=== PATIENT | male | born 1975 | race American Indian/Alaskan Native ===

== ENCOUNTER 2017-10-11 12:49 | Emergency (ER) | payer MEDICAID, MEDICARE ==
[2017-10-11 13:15] VITALS: BP 115/76
[2017-10-11] MEDS ORDERED: ASPIRIN PO ONE (13:15)
[2017-10-11 13:50] LABS: Basophils # (Auto) 0.1 K/mm3 (0.0-0.1); Basophils % (Auto) 0.8 % (0.0-1.8); Eosinophils # (Auto) 0.1 K/mm3 (0.0-0.4); Hematocrit 46.5 % (35.5-45.6); Hemoglobin 15.6 gm/dl (11.8-15.2); Lymphocytes # (Auto) 2.5 K/mm3 (1.2-5.4); Lymphocytes % (Auto) 30.1 % (13.4-35.0); Mean Corpuscular HGB Conc 34 % (32-34); Mean Corpuscular Hemoglobin 31 pg (28-32); Mean Corpuscular Volume 92 fl (84-94); Monocytes # (Auto) 0.9 K/mm3 (0.0-0.8); Monocytes % (Auto) 11.5 % (0.0-7.3); Platelet Count 195 K/mm3 (140-440); Red Blood Count 5.05 M/mm3 (3.65-5.03); Red Cell Distribution Width 13.7 % (13.2-15.2)
[2017-10-11 14:00] LABS: BUN/Creatinine Ratio 11; Blood Urea Nitrogen 10 mg/dL (9-20); Calcium 9.3 mg/dL (8.4-10.2); Hemolysis Index 10
--- NOTE | 2017-10-11 14:21 | XRay Report ---
CHEST 2 VIEWS INDICATION: Chest pain. COMPARISON: 07/02/2015 FINDINGS: PA and lateral chest radiographs again demonstrate normal cardiomediastinal silhouette. Clear lungs. Slight mid to lower thoracic spine degenerative spurring may be developing. CONCLUSION: No acute disease. Thank you for the opportunity to participate in this patient's care.
--- NOTE | 2017-10-11 15:23 | Emergency Department Report ---
Chief Complaint: Chest Pain Stated Complaint: LEFT LEG PAIN Time Seen by Provider: 10/11/17 15:17 - HPI History of Present Illness: 42-year-old male presents to the emergency department with the complaint of pain to the left side of the chest and to the left leg. 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 He is not currently on any blood thinners. He is a tobacco smoker. No recent travel, immobility, recent surgery or any sick contacts at home. He has a primary care physician but cannot currently remember their name and has not seen them regarding his symptoms. - ROS Review of Systems: Positive for left chest/lung pain, left thigh pain Negative for fever, shortness of breath, nausea, vomiting, palpitations - Exam Vital Signs: Vital Signs 10/11/17 13:12 Temperature 98.6 F Pulse Rate 72 Respiratory 16 Rate Blood Pressure 115/76 O2 Sat by Pulse 99 Oximetry Physical Exam: Lung and heart sounds normal auscultation. The left thigh pain is not reproducible to palpation. There is no obvious edema or skin color change. MSE screening note: Focused history and physical exam performed. Due to findings the following was ordered: Patient's labs thus far unremarkable including a CBC, BMP, first troponin and a negative d-dimer. However with the patient's history of previous DVT with unexplained etiology, the patient will have a left lower extremity venous Doppler. He will have A second troponin. EKG does not show any signs of ST elevation PR, ischemia or dysrhythmia. ED Medical Decision Making - Lab Data Result diagrams: 10/11/17 13:17 10/11/17 13:17 ED Disposition for MSE Condition: Stable
[2017-10-11] MEDS ORDERED: TORADOL IM ONE (16:55)
--- NOTE | 2017-10-11 17:01 | Emergency Department Report ---
ED Chest Pain HPI - General Chief Complaint: Chest Pain Stated Complaint: LEFT LEG PAIN Time Seen by Provider: 10/11/17 15:17 Source: patient Mode of arrival: Ambulatory Limitations: No Limitations - History of Present Illness Initial Comments: This is a 42-year-old male nontoxic, well nourished in appearance, no acute signs of distress presents to the ED with c/o of left sided chest pain and left leg pain x2 days. Patient denies any radiation of pain. Patient describes pain as aching intermittently. Patient denies any upper respiratory symptoms. Patient denies any shortness of breath, hemoptysis, fever, chills, nausea, vomiting, headache, stiff neck, numbness, tingling, abdominal pain. Patient denies pleuritic chest pain. Patient denies any recent travels or long car rides. Patient denies any recent surgeries or any sick contacts. Patient denies any drug allergies. Past medical history includes anxiety and DVT. MD Complaint: chest pain -: days(s) (2) Pain Location: right chest Pain Radiation: none Severity: mild Severity scale (0 -10): 3 Quality: aching Consistency: intermittent Improves With: nothing Worsens With: nothing re: denies: nausea, vomting, diaphoresis, dyspnea, sense of impending doom Other Symptoms: denies: cough, fever, syncope, rash, acid taste in mouth, leg swelling, palpitations, burping Treatments Prior to Arrival: none Aspirin use within the Past 7 Days: (0) No - Related Data On Oral Contraceptives: No Previous Rx's Medication Instructions Recorded Last Taken Type Cyclobenzaprine [Flexeril] 10 mg PO BID PRN #10 tablet 10/11/17 Unknown Rx Ibuprofen [Motrin] 600 mg PO Q8H PRN #30 tablet 10/11/17 Unknown Rx Allergies Allergy/AdvReac Type Severity Reaction Status Date / Time No Known Allergies Allergy Verified 07/02/15 14:36 Heart Score - HEART Score History: Slightly suspicious EKG: Normal Age: < 45 Risk factors: No known risk factors Troponin: < normal limit HEART Score: 0 ED Review of Systems ROS: Stated complaint: LEFT LEG PAIN Other details as noted in HPI Constitutional: denies: chills, fever Eyes: denies: eye pain, eye discharge, vision change ENT: denies: ear pain, throat pain Respiratory: denies: cough, shortness of breath, wheezing Cardiovascular: chest pain. denies: palpitations Endocrine: no symptoms reported Gastrointestinal: denies: abdominal pain, nausea, diarrhea Genitourinary: denies: urgency, dysuria Musculoskeletal: denies: back pain, joint swelling, arthralgia Skin: denies: rash, lesions Neurological: denies: headache, weakness, paresthesias Psychiatric: denies: anxiety, depression Hematological/Lymphatic: denies: easy bleeding, easy bruising ED Past Medical Hx - Past Medical History Previous Medical History?: Yes Hx Psychiatric Treatment: Yes (anxiety) - Surgical History Past Surgical History?: No - Social History Smoking Status: Current Every Day Smoker Substance Use Type: None - Medications Home Medications: Home Medications Medication Instructions Recorded Confirmed Last Taken Type Cyclobenzaprine [Flexeril] 10 mg PO BID PRN #10 tablet 10/11/17 Unknown Rx Ibuprofen [Motrin] 600 mg PO Q8H PRN #30 tablet 10/11/17 Unknown Rx ED Physical Exam - General Limitations: No Limitations General appearance: alert, in no apparent distress - Head Head exam: Present: atraumatic, normocephalic - Eye Eye exam: Present: normal appearance Pupils: Present: normal accommodation - ENT ENT exam: Present: normal exam, mucous membranes moist - Neck Neck exam: Present: normal inspection, full ROM. Absent: tenderness, meningismus, lymphadenopathy - Respiratory Respiratory exam: Present: normal lung sounds bilaterally. Absent: respiratory distress, wheezes, rales, rhonchi, stridor, chest wall tenderness, accessory muscle use, decreased breath sounds, prolonged expiratory - Cardiovascular Cardiovascular Exam: Present: regular rate, normal rhythm, normal heart sounds. Absent: bradycardia, tachycardia, irregular rhythm, systolic murmur, diastolic murmur, rubs, gallop - GI/Abdominal GI/Abdominal exam: Present: soft, normal bowel sounds. Absent: distended, tenderness, guarding, rebound, rigid, diminished bowel sounds - Rectal Rectal exam: Present: deferred - Extremities Exam Extremities exam: Present: normal inspection, full ROM, normal capillary refill. Absent: tenderness, pedal edema, joint swelling, calf tenderness - Back Exam Back exam: Present: normal inspection, full ROM - Neurological Exam Neurological exam: Present: alert, oriented X3, normal gait - Psychiatric Psychiatric exam: Present: normal affect, normal mood - Skin Skin exam: Present: warm, dry, intact, normal color. Absent: rash ED Course Vital Signs 10/11/17 13:12 Temperature 98.6 F Pulse Rate 72 Respiratory 16 Rate Blood Pressure 115/76 O2 Sat by Pulse 99 Oximetry - Reevaluation(s) Reevaluation #1: 10/11/17 17:02 Patient is speaking in full sentences with no signs of distress noted. - Consultations Consultation #1: 10/11/17 17:02 Patient has been consulted with Dr. Klein about patient history, physical exam, and labs/Xray report and examined and screened patient and agrees to ED plan of care and discharge plan of care. MILLICENT score - Millicent Score Age > 65: (0) No Aspirin use within the Past 7 Days: (0) No 3 or more CAD Risk Factors: (0) No 2 or more Angina events in past 24 hrs: (0) No Known CAD with more than 50% Stenosis: (0) No Elevated Cardiac Markers: (0) No ST Deviation Greater than 0.5mm: (0) No MILLICENT Score: 0 ED Medical Decision Making - Lab Data Result diagrams: 10/11/17 13:17 10/11/17 13:17 - Medical Decision Making This is a 42-year-old male that presents with chest pain and left muscular leg pain. Patient is stable and was examined by me and Dr. Klein. MILLICENT and HEART score 0 pints. Wells criteria for DVT/SVT/PE 0 points. Negative d-dimmer. Doppler US with no acute changes. EKG normal sinus rhythm with no significant changes in ST. Chest xray dictated by the radiologist. PAtient is notified of the Xray report with no questions noted. Labs within normal limits. Negative troponin x2. Patient received Toradol 60 mg IM in the ED which she stated his symptoms are improving subsided. I will discharge patient with Flexeril and Motrin. Patient was instructed to Follow-up with a primary care/carton folder doctor in 3-5 days or if symptoms worsen and continue return to emergency room as soon as possible. At time of discharge, the patient does not seem toxic or ill in appearance. No acute signs of distress noted. Patient agrees to discharge treatment plan of care. No further questions noted by the patient. Critical care attestation.: If time is entered above; I have spent that time in minutes in the direct care of this critically ill patient, excluding procedure time. ED Disposition Clinical Impression: Chest pain Qualifiers: Chest pain type: unspecified Qualified Code(s): R07.9 - Chest pain, unspecified Muscle strain, lower leg Qualifiers: Encounter type: initial encounter Laterality: left Qualified Code(s): S86.912A - Strain of unspecified muscle(s) and tendon(s) at lower leg level, left leg, initial encounter Disposition: TO HOME OR SELFCARE Is pt being admited?: No Does the pt Need Aspirin: No Condition: Stable Instructions: Chest Pain (ED), Muscle Strain (ED), Cyclosporine (By mouth), Ibuprofen (By mouth) Additional Instructions: Follow-up with a primary care/carton folder doctor in 3-5 days or if symptoms worsen and continue return to emergency room as soon as possible. Prescriptions: Cyclobenzaprine [Flexeril] 10 mg PO BID PRN #10 tablet PRN Reason: Muscle Spasm Ibuprofen [Motrin] 600 mg PO Q8H PRN #30 tablet PRN Reason: Pain Referrals: PRIMARY CAREMD [Referring] - 3-5 Days ITZ KING MD [Staff Physician] - 3-5 Days YOVANY GALARZA MD [Staff Physician] - 3-5 Days [facility] [place]] - 3-5 Days [facility] [Outside] - 3-5 Days Forms: Work/School Release Form(ED)
--- NOTE | 2017-10-12 12:44 | Vascular Lab Report ---
Left Lower Extremity Venous Duplex Study: Reason for Exam: Pain and swelling of the left lower extremity. Comments on the Right: A limited duplex study was done of the proximal veins of the right lower extremity. All veins visualized are freely compressible without evidence of internal echogenicity. Flow is spontaneous and phasic throughout. No evidence of acute or chronic thrombus is seen in any of the vessels visualized. Comments on the Left: Partially occluding chronic thrombus is seen throughout the superficial femoral vein. The remaining veins visualized are freely compressible without evidence of internal echogenicity. Spontaneous and phasic flow is present proximally. Impression: Partially occluding chronic thrombus noted in the left superficial femoral vein. No evidence of acute deep venous thrombosis in the left lower extremity.
== END 2017-10-11 17:15 | disposition home or self-care (01) ==
LOC: ED 12:49
DX: S86.912A Strain of unspecified muscle(s) and tendon(s) at lower leg level, left leg, initial encounter (principal); R07.9 Chest pain, unspecified; F17.200 Nicotine dependence, unspecified, uncomplicated; X58.XXXA Exposure to other specified factors, initial encounter; Y93.89 Activity, other specified; Y92.89 Other specified places as the place of occurrence of the external cause; Y99.8 Other external cause status
CPT/HCPCS: 36415; 71046; 80048; 84484; 85025; 85379; 93005; 93010

== ENCOUNTER 2018-01-24 15:34 | Emergency (ER) | payer MEDICARE ==
[2018-01-24 15:55] VITALS: BP 92/59
--- NOTE | 2018-01-24 16:46 | Emergency Department Report ---
ED General Adult HPI - General Chief complaint: Dizziness Stated complaint: LIGHT HEADED Time Seen by Provider: 01/24/18 16:36 Source: patient Mode of arrival: Ambulatory Limitations: Physical Limitation - History of Present Illness -: Gradual Location: lower extremity Radiation: non-radiation Quality: aching Associated Symptoms: denies other symptoms. denies: confusion, chest pain, cough, diaphoresis, fever/chills, headaches, loss of appetite, malaise, nausea/ vomiting, rash, seizure, shortness of breath, syncope, weakness Treatments Prior to Arrival: none - Related Data Allergies Allergy/AdvReac Type Severity Reaction Status Date / Time No Known Allergies Allergy Verified 07/02/15 14:36 ED Review of Systems ROS: Stated complaint: LIGHT HEADED Other details as noted in HPI Comment: All other systems reviewed and negative Constitutional: denies: chills, fever Eyes: denies: eye pain ENT: denies: ear pain, throat pain Respiratory: denies: cough, orthopnea Cardiovascular: denies: chest pain, palpitations, dyspnea on exertion, orthopnea Endocrine: denies: excessive sweating, flushing, intolerance to cold, intolerance to heat Gastrointestinal: denies: abdominal pain, nausea, vomiting Genitourinary: denies: urgency, dysuria Musculoskeletal: other (LLE PAIN W HX DVT). denies: back pain Skin: denies: rash, lesions Neurological: denies: headache, weakness, numbness, paresthesias, confusion, abnormal gait, vertigo Psychiatric: anxiety, depression, auditory hallucinations. denies: visual hallucinations, homicidal thoughts, suicidal thoughts Hematological/Lymphatic: denies: easy bleeding, easy bruising, swollen glands ED Past Medical Hx - Past Medical History Hx Psychiatric Treatment: Yes (anxiety, SCHIZOPHRENIA) Additional medical history: DVT - Surgical History Past Surgical History?: No - Family History Family history: no significant - Social History Smoking Status: Current Every Day Smoker Substance Use Type: Marijuana ED Physical Exam - General Limitations: Physical Limitation General appearance: alert, anxious, other (TEARFUL) - Head Head exam: Present: normocephalic - Eye Eye exam: Present: PERRL, EOMI - ENT ENT exam: Present: mucous membranes moist - Neck Neck exam: Present: normal inspection - Respiratory Respiratory exam: Present: normal lung sounds bilaterally - Cardiovascular Cardiovascular Exam: Present: regular rate - GI/Abdominal GI/Abdominal exam: Present: soft, normal bowel sounds - Rectal Rectal exam: Present: deferred - Extremities Exam Extremities exam: Present: normal inspection, full ROM, normal capillary refill , other (PLUS 2 DP BILATERAL; NO EDEMA; NEG HOMANS). Absent: tenderness, pedal edema, joint swelling, calf tenderness - Back Exam Back exam: Present: normal inspection - Neurological Exam Neurological exam: Present: alert, oriented X3, CN II-XII intact, normal gait - Psychiatric Psychiatric exam: Present: depressed, anxious. Absent: homicidal ideation, suicidal ideation - Skin Skin exam: Present: warm, dry, intact, normal color. Absent: rash ED Course Vital Signs 01/24/18 15:49 Temperature 97.7 F Pulse Rate 94 H Respiratory 20 Rate Blood Pressure 92/59 O2 Sat by Pulse 96 Oximetry - Reevaluation(s) Reevaluation #1: 01/24/18 18:38 TO ER W PAIN OF LLE W HX OF DVT DURING EXAM PT TEARFUL POS [facility] PT ON [facility] GOT SHOT LAST WEEK SEES [facility] STATES HE DOES NOT WANT TO LIVE HE IS TIRED HOMELESS NO SI NO HI POS AUD HALLUC. WILL NOT SAY WHAT THE MENTAL HEALTH HAS SEEN PT CIG ETOH TCH LABS NORMAL 12 LEAD NAP US NEG FOR DVT DC HOME W [facility] FOLLOW UP ED Medical Decision Making - Lab Data Result diagrams: 01/24/18 16:36 01/24/18 16:36 - EKG Data When compared to previous EKG there are: no significant change Interpretation: no acute changes - Radiology Data Radiology results: report reviewed, image reviewed - Medical Decision Making MENTAL HEALTH ASSESSMENT SEE NOTE NEG DVT LABS NORMAL - Differential Diagnosis RO DVT; PSYCH CLEARANCE Critical care attestation.: If time is entered above; I have spent that time in minutes in the direct care of this critically ill patient, excluding procedure time. ED Disposition Clinical Impression: Homeless, Wellness examination, Leg pain Disposition: DC- TO HOME OR SELFCARE Is pt being admited?: No Does the pt Need Aspirin: No Condition: Stable Additional Instructions: LABS NORMAL TODAY NO BLOOD CLOT FOLLOW UP WITH [address] PER MENTAL HEALTH HYDRATE WELL Referrals: PRIMARY CARE, [Primary Care Provider] - 3-5 Days NITHIN HENDRICKS MD [Staff Physician] - 3-5 Days Time of Disposition: 18:34
[2018-01-24 16:51] LABS: Basophils % (Auto) 0.5 % (0.0-1.8); Eosinophils % (Auto) 0.6 % (0.0-4.3); Hemoglobin 14.2 gm/dl (11.8-15.2); Lymphocytes # (Auto) 2.1 K/mm3 (1.2-5.4); Lymphocytes % (Auto) 29.4 % (13.4-35.0); Mean Corpuscular HGB Conc 33 % (32-34); Mean Corpuscular Hemoglobin 31 pg (28-32); Mean Corpuscular Volume 93 fl (84-94); Monocytes # (Auto) 0.4 K/mm3 (0.0-0.8); Platelet Count 169 K/mm3 (140-440); Red Blood Count 4.62 M/mm3 (3.65-5.03)
[2018-01-24 17:00] LABS: INR 1.07 (0.87-1.13)
[2018-01-24 17:01] LABS: Partial Thromboplastin Time 25.9 Sec. (24.2-36.6)
[2018-01-24 17:16] LABS: BUN/Creatinine Ratio 8; Blood Urea Nitrogen 8 mg/dL (9-20); Hemolysis Index 7
[2018-01-24 18:23] LABS: Bilirubin,Urine NEG (Negative); Blood,Urine NEG (Negative); Color,Urine Yellow (Yellow); Mucus,Urine 1+ /HPF; Protein,Urine <15 mg/dL mg/dL (Negative)
[2018-01-24 18:25] LABS: Amphetamine Screen,Urine PRESUMPTIVE NEGATIVE; Benzodiazepines Screen,Urine PRESUMPTIVE NEGATIVE; Cocaine Screen,Urine PRESUMPTIVE NEGATIVE; Methadone Screen,Urine PRESUMPTIVE NEGATIVE; Opiate Screen,Urine PRESUMPTIVE NEGATIVE
[2018-01-24 18:43] LABS: Cannabinoid Screen,Urine PRESUMPTIVE POSITIVE
--- NOTE | 2018-01-26 14:28 | Vascular Lab Report ---
Left Lower Extremity Venous Duplex Study: Reason for Exam: Pain and swelling of the left lower extremity. Comments on the Right: A limited duplex study was done of the proximal veins of the right lower extremity. All veins visualized are freely compressible without evidence of internal echogenicity. Flow is spontaneous and phasic throughout. No evidence of acute or chronic thrombus is seen in any of the vessels visualized. Comments on the Left: Partially occluding chronic thrombus is seen in the common femoral vein, superficial femoral vein, and the popliteal vein. These findings are unchanged from a previous study dated October 11, 2017. The remaining veins visualized are freely compressible without evidence of internal echogenicity. Spontaneous and phasic flow is present proximally. Impression: Extensive partially occluding chronic thrombus seen in the left lower extremity. This is unchanged from the previous study dated October 11, 2017.
== END 2018-01-24 19:00 | disposition home or self-care (01) ==
LOC: ED 15:34
DX: R42 Dizziness and giddiness (principal); M79.605 Pain in left leg; M79.604 Pain in right leg; F17.200 Nicotine dependence, unspecified, uncomplicated; F12.90 Cannabis use, unspecified, uncomplicated; Z59.0 Homelessness
CPT/HCPCS: 36415; 80048; 80307; 81001; 85025; 85610; 85730; 93005; 93010; 93971; 99284; G0480; 80320

== ENCOUNTER 2018-08-06 14:16 | Emergency (ER) | payer MEDICARE ==
[2018-08-06 14:21] VITALS: BP 116/78
--- NOTE | 2018-08-06 14:26 | Emergency Department Report ---
Chief Complaint: Urogenital-Male Stated Complaint: STD CHECK Time Seen by Provider: 08/06/18 14:20 - HPI History of Present Illness: 42 y o male presents to Ed wanting to be tested for herpes states he was given oral sex a couple of days ago and is worried No symptoms - ROS Review of Systems: as noted in HPI denies all - Exam Vital Signs: Vital Signs 08/06/18 14:20 Temperature 98.5 F Pulse Rate 86 Respiratory 16 Rate Blood Pressure 116/78 O2 Sat by Pulse 98 Oximetry Physical Exam: Gen: aaox 3 no acute distress AbD: nontender MSE screening note: Focused history and physical exam performed. Due to findings the following was ordered: ED Medical Decision Making - Medical Decision Making [facility] clinic referral given and told to f/u there for std screening discussed with pt this is not a NME which he could be seen at [facility] He states understanding, all questions answered. vital signs stable ED Disposition for MSE Clinical Impression: Screening for STD (sexually transmitted disease) Disposition: DC-01 TO HOME OR SELFCARE Is pt being admited?: No Does the pt Need Aspirin: No Condition: Stable Instructions: Genital Herpes Simplex (ED) Referrals: [facility] [Outside] - 3-5 Days [facility] [Outside] - 3-5 Days Forms: Work/School Release Form(ED)
== END 2018-08-06 14:48 | disposition home or self-care (01) ==
LOC: ED 14:16
DX: Z11.3 Encounter for screening for infections with a predominantly sexual mode of transmission (principal)
CPT/HCPCS: 99281

== ENCOUNTER 2018-12-14 01:08 | Emergency (ER) | payer MEDICARE ==
[2018-12-14] MEDS ORDERED: ASPIRIN PO ONE (01:13)
[2018-12-14 01:40] LABS: Basophils # (Auto) 0.1 K/mm3 (0.0-0.1); Basophils % (Auto) 0.6 % (0.0-1.8); Eosinophils % (Auto) 0.3 % (0.0-4.3); Hematocrit 44.6 % (35.5-45.6); Hemoglobin 15.3 gm/dl (11.8-15.2); Lymphocytes # (Auto) 1.9 K/mm3 (1.2-5.4); Lymphocytes % (Auto) 20.4 % (13.4-35.0); Mean Corpuscular HGB Conc 34 % (32-34); Mean Corpuscular Volume 91 fl (84-94); Monocytes # (Auto) 0.5 K/mm3 (0.0-0.8); Monocytes % (Auto) 5.9 % (0.0-7.3); Platelet Count 204 K/mm3 (140-440); Red Blood Count 4.91 M/mm3 (3.65-5.03); Red Cell Distribution Width 13.6 % (13.2-15.2)
--- NOTE | 2018-12-14 01:47 | XRay Report ---
CHEST 1 VIEW 1:33 AM INDICATION / CLINICAL INFORMATION: Chest Pain. COMPARISON: 10/11/2017. FINDINGS: SUPPORT DEVICES: None. HEART / MEDIASTINUM: The heart size and pulmonary vasculature are normal. The aorta is normal in mariya morteza. LUNGS / PLEURA: No significant pulmonary or pleural abnormality. No pneumothorax. ADDITIONAL FINDINGS: No significant additional findings. IMPRESSION: No acute abnormality or significant change. Signer Name: Ralph Mosquera MD Signed: 12/14/2018 1:42 AM Workstation Name: [id number]
[2018-12-14 02:02] LABS: BUN/Creatinine Ratio 11; Blood Urea Nitrogen 10 mg/dL (9-20); Calcium 9.5 mg/dL (8.4-10.2); Hemolysis Index 18
[2018-12-14 03:56] VITALS: BP 142/89
--- NOTE | 2018-12-14 05:23 | Emergency Department Report ---
ED Psych HPI - General Chief Complaint: Psych Stated Complaint: MEDICAL CLEARANCE Time Seen by Provider: 12/14/18 02:05 Source: patient Mode of arrival: Ambulatory Limitations: No Limitations - History of Present Illness Initial Comments: presents to ER for Medical clearance for [facility] where he is going for alcohol detox. no n/v, c/o chest pain, for about one month, mid chest mostly after drinking alcohol. no sob, n/v, or diaphoresis. - Related Data Previous Rx's Medication Instructions Recorded Last Taken Type Amoxicillin/Potassium Clav 1 each PO BID #20 tablet 04/29/18 Unknown Rx [Augmentin 875-125 Tablet] Ibuprofen [Ibuprofen 800] 800 mg PO TID PRN #30 tablet 04/29/18 Unknown Rx Oxymetazoline 0.05% [Afrin] 2 spray NS BID 3 Days #1 bottle 04/29/18 Unknown Rx Allergies Allergy/AdvReac Type Severity Reaction Status Date / Time No Known Allergies Allergy Verified 08/06/18 14:17 ED Review of Systems ROS: Stated complaint: MEDICAL CLEARANCE Other details as noted in HPI Comment: All other systems reviewed and negative Cardiovascular: chest pain Gastrointestinal: denies: abdominal pain, nausea, vomiting Genitourinary: denies: urgency Skin: denies: rash Psychiatric: anxiety. denies: depression, auditory hallucinations, visual hallucinations, homicidal thoughts ED Past Medical Hx - Past Medical History Previous Medical History?: Yes Hx Psychiatric Treatment: Yes (anxiety, SCHIZOPHRENIA) Additional medical history: DVT left leg. Svt - Surgical History Past Surgical History?: No - Social History Smoking Status: Current Every Day Smoker Substance Use Type: Alcohol - Medications Home Medications: Home Medications Medication Instructions Recorded Confirmed Last Taken Type Amoxicillin/Potassium Clav 1 each PO BID #20 tablet 04/29/18 Unknown Rx [Augmentin 875-125 Tablet] Ibuprofen [Ibuprofen 800] 800 mg PO TID PRN #30 tablet 04/29/18 Unknown Rx Oxymetazoline 0.05% [Afrin] 2 spray NS BID 3 Days #1 bottle 04/29/18 Unknown Rx ED Physical Exam - General Limitations: No Limitations General appearance: alert, in no apparent distress - Head Head exam: Present: atraumatic, normocephalic - Eye Eye exam: Present: normal appearance, PERRL, EOMI Pupils: Present: normal accommodation - ENT ENT exam: Present: normal exam - Neck Neck exam: Present: normal inspection - Respiratory Respiratory exam: Present: normal lung sounds bilaterally - Cardiovascular Cardiovascular Exam: Present: regular rate, normal rhythm - GI/Abdominal GI/Abdominal exam: Present: soft, normal bowel sounds - Extremities Exam Extremities exam: Present: normal inspection - Back Exam Back exam: Present: normal inspection - Neurological Exam Neurological exam: Present: alert, oriented X3, CN II-XII intact - Psychiatric Psychiatric exam: Present: normal affect - Skin Skin exam: Present: warm ED Course Vital Signs 12/14/18 12/14/18 01:11 03:45 Temperature 98.5 F Pulse Rate 112 H 89 Respiratory 18 18 Rate Blood Pressure 122/79 142/89 O2 Sat by Pulse 95 95 Oximetry ED Medical Decision Making - Lab Data Result diagrams: 12/14/18 01:25 12/14/18 01:25 - EKG Data -: EKG Interpreted by Me EKG shows normal: sinus rhythm Rate: normal - EKG Data When compared to previous EKG there are: previous EKG unavailable Interpretation: nonspecific ST-T wave shanel - Radiology Data Radiology results: report reviewed no acute process - Medical Decision Making troponin neg, medically clear for inpatient detox. - Differential Diagnosis gastritis, acs Critical care attestation.: If time is entered above; I have spent that time in minutes in the direct care of this critically ill patient, excluding procedure time. ED Disposition Clinical Impression: Medical clearance for psychiatric admission Alcoholic gastritis without bleeding Qualifiers: Chronicity: acute Qualified Code(s): K29.20 - Alcoholic gastritis without bleeding Disposition: DC-01 TO HOME OR SELFCARE Is pt being admited?: No Does the pt Need Aspirin: No Condition: Stable Referrals: STELLA ALVARADO MD [Primary Care Provider] - 3-5 Days
== END 2018-12-14 05:35 | disposition home or self-care (01) ==
LOC: ED 01:08
DX: K29.20 Alcoholic gastritis without bleeding (principal); F41.9 Anxiety disorder, unspecified; F20.9 Schizophrenia, unspecified; F17.200 Nicotine dependence, unspecified, uncomplicated; Z79.1 Long term (current) use of non-steroidal anti-inflammatories (NSAID); Z86.718 Personal history of other venous thrombosis and embolism
CPT/HCPCS: 36415; 71045; 80048; 80320; 84484; 85025; 93005; 93010; 99285; G0480

== ENCOUNTER 2019-03-31 16:47 | Emergency (ER) | payer MEDICARE ==
--- NOTE | 2019-03-31 17:06 | Event Note ---
ED Screening Note ED Screening Note: MADRIGAL, sore throat, and chest discomfort worse with coughing that began a week ago +cough no rhinorrhea no congestion no sick contacts no fever states he is a smoker PMHx DVT 16 years ago, took coumadin, SVT This initial assessment/diagnostic orders/clinical plan/treatment(s) is/are subject to change based on patients health status, clinical progression and re- assessment by fellow clinical providers in the ED. Further treatment and workup at subsequent clinical providers discretion. Patient/guardian urged not to elope from the ED as their condition may be serious if not clinically assessed and managed. Initial orders include: CXR, EKG
--- NOTE | 2019-03-31 17:53 | XRay Report ---
CHEST PA AND LATERAL VIEWS INDICATION: cough, CP. COMPARISON: 12/14/2018. FINDINGS: Support devices: None. Heart: Within normal limits. Lungs/Pleura: No acute pulmonary or pleural findings. IMPRESSION: 1. No acute findings. Signer Name: Jay Che MD Signed: 03/31/2019 5:49 PM Workstation Name: [id number]
[2019-03-31] MEDS ORDERED: ALUM-MAG HYDROXIDE-SIMETHICONE 200-200-20MG/5ML ORAL LIQD 30 ML PO ONE (18:33)
[2019-03-31] MEDS ORDERED: LIDOCAINE VISCOUS 2% 15 ML ORAL LIQD PO ONE (18:33)
[2019-03-31] MEDS ORDERED: IBUPROFEN 800 MG TAB PO ONE (18:35)
--- NOTE | 2019-03-31 18:38 | Emergency Department Report ---
ED Chest Pain HPI - General Chief Complaint: Chest Pain Stated Complaint: CHEST PAIN/HEAD/THROAT PAIN Time Seen by Provider: 03/31/19 17:03 Source: patient Mode of arrival: Ambulatory Limitations: No Limitations - History of Present Illness Initial Comments: Mr. Peacock is a 43-year-old [place] male with history of GERD and depression, who presents for chest pain and indigestion and headache 2 days. Patient states was on omeprazole has not had meds in over 1 month. There is no n/v, no back pain, no sob, no diaphoresis, symptoms are exacerbated by po intake and position, symptoms are relieved by "resting". MD Complaint: chest pain Onset/Timin -: days(s) Onset: after eating Pain Location: epigastric Pain Radiation: none Severity: moderate Severity scale (0 -10): 4 Quality: pressure Consistency: constant Improves With: rest Worsens With: eating, supine re: denies: nausea, vomting, diaphoresis, dyspnea, sense of impending doom Other Symptoms: acid taste in mouth, burping. denies: cough, fever, syncope, leg swelling, palpitations Treatments Prior to Arrival: none - Related Data Previous Rx's Medication Instructions Recorded Last Taken Type Amoxicillin/Potassium Clav 1 each PO BID #20 tablet 04/29/18 Unknown Rx [Augmentin 875-125 Tablet] Ibuprofen [Ibuprofen 800] 800 mg PO TID PRN #30 tablet 04/29/18 Unknown Rx Oxymetazoline 0.05% [Afrin] 2 spray NS BID 3 Days #1 bottle 04/29/18 Unknown Rx Ranitidine HCl [Heartburn Relief] 75 mg PO BID 30 Days #60 tablet 12/14/18 Unknown Rx Famotidine [Pepcid] 20 mg PO BID #30 tablet 03/31/19 Unknown Rx Allergies Allergy/AdvReac Type Severity Reaction Status Date / Time No Known Allergies Allergy Verified 03/31/19 16:47 Heart Score - HEART Score History: Slightly suspicious EKG: Normal Age: < 45 Risk factors: No known risk factors Troponin: < normal limit HEART Score: 0 ED Review of Systems ROS: Stated complaint: CHEST PAIN/HEAD/THROAT PAIN Other details as noted in HPI Constitutional: denies: chills, fever Eyes: denies: eye pain, eye discharge, vision change ENT: denies: ear pain, throat pain Respiratory: denies: cough, shortness of breath, wheezing Cardiovascular: chest pain. denies: palpitations, orthopnea, syncope, paroxysmal nocturnal dyspnea Endocrine: no symptoms reported Gastrointestinal: denies: abdominal pain, nausea, vomiting, diarrhea Genitourinary: denies: urgency, dysuria Musculoskeletal: as per HPI. denies: back pain Skin: denies: rash, lesions Neurological: as per HPI, headache. denies: weakness, numbness, paresthesias, vertigo Psychiatric: denies: anxiety, depression Hematological/Lymphatic: denies: easy bleeding, easy bruising ED Past Medical Hx - Past Medical History Hx Psychiatric Treatment: Yes (anxiety, SCHIZOPHRENIA) Additional medical history: DVT left leg. Svt - Surgical History Past Surgical History?: No - Social History Smoking Status: Current Every Day Smoker Substance Use Type: None - Medications Home Medications: Home Medications Medication Instructions Recorded Confirmed Last Taken Type Amoxicillin/Potassium Clav 1 each PO BID #20 tablet 04/29/18 Unknown Rx [Augmentin 875-125 Tablet] Ibuprofen [Ibuprofen 800] 800 mg PO TID PRN #30 tablet 04/29/18 Unknown Rx Oxymetazoline 0.05% [Afrin] 2 spray NS BID 3 Days #1 bottle 04/29/18 Unknown Rx Ranitidine HCl [Heartburn Relief] 75 mg PO BID 30 Days #60 tablet 12/14/18 Unknown Rx Famotidine [Pepcid] 20 mg PO BID #30 tablet 03/31/19 Unknown Rx ED Physical Exam - General Limitations: No Limitations General appearance: alert, in no apparent distress - Head Head exam: Present: atraumatic, normocephalic - Eye Eye exam: Present: normal appearance, EOMI Pupils: Present: normal accommodation - ENT ENT exam: Present: normal orophraynx, mucous membranes moist - Neck Neck exam: Present: normal inspection, full ROM. Absent: tenderness - Respiratory Respiratory exam: Present: normal lung sounds bilaterally. Absent: respiratory distress, wheezes, stridor, chest wall tenderness - Cardiovascular Cardiovascular Exam: Present: regular rate, normal heart sounds - GI/Abdominal GI/Abdominal exam: Present: soft, normal bowel sounds. Absent: distended, tenderness, bruit, hernia - Rectal Rectal exam: Present: deferred - Extremities Exam Extremities exam: Present: normal inspection, full ROM, normal capillary refill. Absent: pedal edema - Back Exam Back exam: Present: normal inspection, full ROM. Absent: CVA tenderness (R), CVA tenderness (L) - Neurological Exam Neurological exam: Present: alert, oriented X3, CN II-XII intact, normal gait - Psychiatric Psychiatric exam: Present: normal affect, normal mood - Skin Skin exam: Present: warm, dry, intact, normal color. Absent: rash ED Course Vital Signs 03/31/19 03/31/19 17:04 18:20 Temperature 98.2 F Pulse Rate 68 70 Respiratory 16 16 Rate Blood Pressure 119/76 Blood Pressure 131/78 [Left] O2 Sat by Pulse 100 98 Oximetry MILLICENT score - Millicent Score Age > 65: (0) No Aspirin use within the Past 7 Days: (0) No 3 or more CAD Risk Factors: (0) No 2 or more Angina events in past 24 hrs: (0) No Known CAD with more than 50% Stenosis: (0) No Elevated Cardiac Markers: (0) No ST Deviation Greater than 0.5mm: (0) No MILLICENT Score: 0 ED Medical Decision Making - EKG Data EKG shows normal: sinus rhythm, axis, intervals, QRS complexes, ST-T waves Rate: normal - EKG Data When compared to previous EKG there are: no significant change Interpretation: normal EKG (ekg interp by ed attending NSR no ST Elevated MO) - Radiology Data Radiology results: report reviewed, image reviewed no acute findings - Medical Decision Making Patient advises that chest pain is relieved to 0/10. Patient alert and oriented 3 tolerating by mouth intake ,there is no nausea /vomiting/ no chest pain, no diaphoresis, no back pain patient patient elects to sign out AMA stating he cannot wait for labs. Patient demonstrates sound decision-making capacity, patient has had opportunity to ask and I have answered all questions to his satisfaction including worsening condition and . pt elects to follow up with PCP outpatient and sign out against medical advice at this time. Critical care attestation.: If time is entered above; I have spent that time in minutes in the direct care of this critically ill patient, excluding procedure time. ED Disposition Clinical Impression: Chest pain Qualifiers: Chest pain type: unspecified Qualified Code(s): R07.9 - Chest pain, unspecified Disposition: LEFT AGAINST MED ADVICE Is pt being admited?: No Does the pt Need Aspirin: No Condition: Undetermined Instructions: Chest Pain (ED) Prescriptions: Famotidine [Pepcid] 20 mg PO BID #30 tablet Referrals: PRIMARY CARE,MD [Primary Care Provider] - 3-5 Days Forms: AMA Form, Work/School Release Form(ED) Time of Disposition: 19:44
[2019-03-31 20:19] VITALS: BP 118/68
== END 2019-03-31 20:09 | disposition left against medical advice (07) ==
LOC: ED 16:47
DX: R07.89 Other chest pain (principal); F41.9 Anxiety disorder, unspecified; F20.9 Schizophrenia, unspecified; F17.200 Nicotine dependence, unspecified, uncomplicated; Z79.1 Long term (current) use of non-steroidal anti-inflammatories (NSAID); Z79.2 Long term (current) use of antibiotics; Z79.899 Other long term (current) drug therapy
CPT/HCPCS: 71046; 93005; 93010

== ENCOUNTER 2019-05-06 19:40 | Emergency (ER) | payer MEDICARE ==
--- NOTE | 2019-05-06 22:53 | Event Note ---
ED Screening Note Date of service: 05/06/19 Time: 22:51 ED Screening Note: 43 y/o male comes in chest times a few days. No PMH of cardiac disease. This initial assessment/diagnostic orders/clinical plan/treatment(s) is/are subject to change based on patients health status, clinical progression and re- assessment by fellow clinical providers in the ED. Further treatment and workup at subsequent clinical providers discretion. Patient/guardian urged not to elope from the ED as their condition may be serious if not clinically assessed and managed. Initial orders include:
[2019-05-06 23:33] LABS: Basophils % (Auto) 0.5 % (0.0-1.8); Eosinophils # (Auto) 0.1 K/mm3 (0.0-0.4); Eosinophils % (Auto) 2.1 % (0.0-4.3); Hematocrit 41.5 % (35.5-45.6); Hemoglobin 14.1 gm/dl (11.8-15.2); Lymphocytes # (Auto) 2.3 K/mm3 (1.2-5.4); Lymphocytes % (Auto) 41.4 % (13.4-35.0); Mean Corpuscular HGB Conc 34 % (32-34); Mean Corpuscular Volume 93 fl (84-94); Monocytes # (Auto) 0.5 K/mm3 (0.0-0.8); Monocytes % (Auto) 8.7 % (0.0-7.3); Platelet Count 205 K/mm3 (140-440); Red Blood Count 4.48 M/mm3 (3.65-5.03); Red Cell Distribution Width 14.7 % (13.2-15.2)
--- NOTE | 2019-05-06 23:35 | XRay Report ---
CHEST 2 VIEWS INDICATION / CLINICAL INFORMATION: Chest Pain. COMPARISON: 03/31/2019. FINDINGS: SUPPORT DEVICES: None. HEART / MEDIASTINUM: The heart size and pulmonary vasculature are normal. The aorta is normal in mariya morteza. LUNGS / PLEURA: No significant pulmonary or pleural abnormality. No pneumothorax. ADDITIONAL FINDINGS: No significant additional findings. IMPRESSION: No acute abnormality or significant change. Signer Name: Ralph Mosquera MD Signed: 05/06/2019 11:31 PM Workstation Name: [id number]
[2019-05-07] LABS: Alanine Aminotransferase 8 units/L (7-56); BUN/Creatinine Ratio 12; Blood Urea Nitrogen 12 mg/dL (9-20); Calcium 9.3 mg/dL (8.4-10.2); Hemolysis Index 33
[2019-05-07 00:35] LABS: Amphetamine Screen,Urine PRESUMPTIVE NEGATIVE; Benzodiazepines Screen,Urine PRESUMPTIVE NEGATIVE; Cocaine Screen,Urine PRESUMPTIVE NEGATIVE; Methadone Screen,Urine PRESUMPTIVE NEGATIVE; Opiate Screen,Urine PRESUMPTIVE NEGATIVE
[2019-05-07 00:50] LABS: Cannabinoid Screen,Urine PRESUMPTIVE POSITIVE
[2019-05-07] MEDS ORDERED: SODIUM CHLORIDE 0.9% 1000 ML 1,000 ML IV ONE ×2 (01:16)
[2019-05-07 04:22] VITALS: BP 123/65
--- NOTE | 2019-05-07 04:31 | Emergency Department Report ---
ED General Adult HPI - General Chief complaint: Chest Pain Stated complaint: CHEST PAIN/LOW BP Time Seen by Provider: 05/06/19 22:49 Source: patient Mode of arrival: Ambulatory Limitations: No Limitations - History of Present Illness Initial comments: Patient is a 43-year-old male who is currently [facility]ic[facility] and excessive grief after the of his sister who has some chest discomfort while there. Patient states he is has no pain at this time. Patient states it was a sharp pain that lasted briefly. Patient states he has been under great stress. Patient was noted to have a blood pressure 100/55 and [facility]. Blood pressure was within normal limits on arrival but after patient went to sleep her pressure did drop again. Patient not been eating and drinking well since the of his sister several weeks ago. Severity scale (0 -10): 0 - Related Data Previous Rx's Medication Instructions Recorded Last Taken Type Amoxicillin/Potassium Clav 1 each PO BID #20 tablet 04/29/18 Unknown Rx [Augmentin 875-125 Tablet] Ibuprofen [Ibuprofen 800] 800 mg PO TID PRN #30 tablet 04/29/18 Unknown Rx Oxymetazoline 0.05% [Afrin] 2 spray NS BID 3 Days #1 bottle 04/29/18 Unknown Rx Ranitidine HCl [Heartburn Relief] 75 mg PO BID 30 Days #60 tablet 12/14/18 Unknown Rx Famotidine [Pepcid] 20 mg PO BID #30 tablet 03/31/19 Unknown Rx Allergies Allergy/AdvReac Type Severity Reaction Status Date / Time No Known Allergies Allergy Verified 03/31/19 16:47 ED Review of Systems ROS: Stated complaint: CHEST PAIN/LOW BP Other details as noted in HPI Comment: All other systems reviewed and negative ED Past Medical Hx - Past Medical History Previous Medical History?: Yes Hx Psychiatric Treatment: Yes (anxiety, SCHIZOPHRENIA) Additional medical history: DVT left leg. Svt - Surgical History Past Surgical History?: No - Social History Smoking Status: Current Every Day Smoker Substance Use Type: None - Medications Home Medications: Home Medications Medication Instructions Recorded Confirmed Last Taken Type Amoxicillin/Potassium Clav 1 each PO BID #20 tablet 04/29/18 Unknown Rx [Augmentin 875-125 Tablet] Ibuprofen [Ibuprofen 800] 800 mg PO TID PRN #30 tablet 04/29/18 Unknown Rx Oxymetazoline 0.05% [Afrin] 2 spray NS BID 3 Days #1 bottle 04/29/18 Unknown Rx Ranitidine HCl [Heartburn Relief] 75 mg PO BID 30 Days #60 tablet 12/14/18 Unknown Rx Famotidine [Pepcid] 20 mg PO BID #30 tablet 03/31/19 Unknown Rx ED Physical Exam - General Limitations: No Limitations General appearance: alert, in no apparent distress - Head Head exam: Present: atraumatic, normocephalic - Eye Eye exam: Present: normal appearance, PERRL, EOMI - ENT ENT exam: Present: mucous membranes moist - Neck Neck exam: Present: normal inspection - Respiratory Respiratory exam: Present: normal lung sounds bilaterally. Absent: respiratory distress, wheezes, rales, rhonchi - Cardiovascular Cardiovascular Exam: Present: regular rate, normal rhythm. Absent: systolic murmur, diastolic murmur, rubs, gallop - GI/Abdominal GI/Abdominal exam: Present: soft, normal bowel sounds - Rectal Rectal exam: Present: deferred - Extremities Exam Extremities exam: Present: normal inspection - Back Exam Back exam: Present: normal inspection - Neurological Exam Neurological exam: Present: alert, oriented X3 - Psychiatric Psychiatric exam: Present: normal affect, normal mood - Skin Skin exam: Present: warm, dry, intact, normal color. Absent: rash ED Course Vital Signs 05/06/19 05/07/19 05/07/19 20:44 01:09 04:22 Temperature 97.6 F 97.8 F 97.8 F Pulse Rate 62 59 L 60 Respiratory 18 20 20 Rate Blood Pressure 115/72 Blood Pressure 102/59 123/65 [Right] O2 Sat by Pulse 100 100 99 Oximetry ED Medical Decision Making - Lab Data Result diagrams: 05/06/19 23:20 05/06/19 23:20 Lab Results 05/06/19 05/06/19 05/07/19 Range/Units 23:20 23:20 00:01 WBC 5.6 (4.5-11.0) K/mm3 RBC 4.48 (3.65-5.03) M/mm3 Hgb 14.1 (11.8-15.2) gm/dl Hct 41.5 (35.5-45.6) % MCV 93 (84-94) fl MCH 32 (28-32) pg MCHC 34 (32-34) % RDW 14.7 (13.2-15.2) % Plt Count 205 (140-440) K/mm3 Lymph % (Auto) 41.4 H (13.4-35.0) % [place] % (Auto) 8.7 H (0.0-7.3) % Eos % (Auto) 2.1 (0.0-4.3) % Baso % (Auto) 0.5 (0.0-1.8) % Lymph # 2.3 (1.2-5.4) K/mm3 [place] # 0.5 (0.0-0.8) K/mm3 Eos # 0.1 (0.0-0.4) K/mm3 Baso # 0.0 (0.0-0.1) K/mm3 Seg Neutrophils % 47.3 (40.0-70.0) % Seg Neutrophils # 2.6 (1.8-7.7) K/mm3 Sodium 141 (137-145) mmol/L Potassium 3.8 (3.6-5.0) mmol/L Chloride 104.0 (98-107) mmol/L Carbon Dioxide 25 (22-30) mmol/L Anion Gap 16 mmol/L BUN 12 (9-20) mg/dL Creatinine 1.0 (0.8-1.5) mg/dL Estimated GFR > 60 ml/min BUN/Creatinine Ratio 12 % Glucose 89 (75-100) mg/dL Calcium 9.3 (8.4-10.2) mg/dL Total Bilirubin < 0.20 (0.1-1.2) mg/dL AST 17 (5-40) units/L ALT 8 (7-56) units/L Alkaline Phosphatase 63 (35-129) units/L Troponin T < 0.010 (0.00-0.029) ng/mL Total Protein 7.0 (6.3-8.2) g/dL Albumin 4.0 (3.9-5) g/dL Albumin/Globulin Ratio 1.3 % Lipase 23 (13-60) units/L Urine Opiates Screen Presumptive negative Urine Methadone Screen Presumptive negative Ur Barbiturates Screen Presumptive negative Ur Phencyclidine Scrn Presumptive negative Ur Amphetamines Screen Presumptive negative U Benzodiazepines Scrn Presumptive negative Urine Cocaine Screen Presumptive negative U Marijuana (THC) Screen Presumptive positive Drugs of Abuse Note Disclamer 05/07/19 Range/Units 01:50 WBC (4.5-11.0) K/mm3 RBC (3.65-5.03) M/mm3 Hgb (11.8-15.2) gm/dl Hct (35.5-45.6) % MCV (84-94) fl MCH (28-32) pg MCHC (32-34) % RDW (13.2-15.2) % Plt Count (140-440) K/mm3 Lymph % (Auto) (13.4-35.0) % [place] % (Auto) (0.0-7.3) % Eos % (Auto) (0.0-4.3) % Baso % (Auto) (0.0-1.8) % Lymph # (1.2-5.4) K/mm3 [place] # (0.0-0.8) K/mm3 Eos # (0.0-0.4) K/mm3 Baso # (0.0-0.1) K/mm3 Seg Neutrophils % (40.0-70.0) % Seg Neutrophils # (1.8-7.7) K/mm3 Sodium (137-145) mmol/L Potassium (3.6-5.0) mmol/L Chloride (98-107) mmol/L Carbon Dioxide (22-30) mmol/L Anion Gap mmol/L BUN (9-20) mg/dL Creatinine (0.8-1.5) mg/dL Estimated GFR ml/min BUN/Creatinine Ratio % Glucose (75-100) mg/dL Calcium (8.4-10.2) mg/dL Total Bilirubin (0.1-1.2) mg/dL AST (5-40) units/L ALT (7-56) units/L Alkaline Phosphatase (35-129) units/L Troponin T < 0.010 (0.00-0.029) ng/mL Total Protein (6.3-8.2) g/dL Albumin (3.9-5) g/dL Albumin/Globulin Ratio % Lipase (13-60) units/L Urine Opiates Screen Urine Methadone Screen Ur Barbiturates Screen Ur Phencyclidine Scrn Ur Amphetamines Screen U Benzodiazepines Scrn Urine Cocaine Screen U Marijuana (THC) Screen Drugs of Abuse Note - EKG Data -: EKG Interpreted by Me EKG shows normal: sinus rhythm, axis, intervals, QRS complexes, ST-T waves Rate: bradycardia (55) - EKG Data Interpretation: normal EKG - Medical Decision Making The patient's blood pressure did improve after normal saline. Patient likely has mild dehydration. Patient been chest pain-free here in emergency department his laboratory studies are within normal limits. Patient be discharged. Osman perdomo is stable for mental health evaluation Critical care attestation.: If time is entered above; I have spent that time in minutes in the direct care of this critically ill patient, excluding procedure time. ED Disposition Clinical Impression: Mild dehydration, Atypical chest pain Disposition: DC-01 TO HOME OR SELFCARE Is pt being admited?: No Does the pt Need Aspirin: No Condition: Stable Additional Instructions: Patient may have had some very mild dehydration. Patient was hydrated blood pressures normalized. Patient's heart enzymes within normal limits EKG is showing no acute process. Patient is stable for mental health evaluation. Referrals: PRIMARY CARE, [Primary Care Provider] - 3-5 Days Time of Disposition: 04:31
== END 2019-05-07 07:18 | disposition home or self-care (01) ==
LOC: ED 19:40
DX: R07.89 Other chest pain (principal); R45.851 Suicidal ideations; E86.0 Dehydration; F20.9 Schizophrenia, unspecified; F41.9 Anxiety disorder, unspecified; F17.200 Nicotine dependence, unspecified, uncomplicated; Z79.899 Other long term (current) drug therapy
CPT/HCPCS: 36415; 71046; 80053; 80307; 83690; 84484; 85025; 93005; 93010; 96360; 96361; 99284; J7030

== ENCOUNTER 2019-05-29 10:50 | Emergency (ER) | payer MEDICARE ==
[2019-05-29 12:57] LABS: Basophils % (Auto) 0.8 % (0.0-1.8); Eosinophils % (Auto) 0.5 % (0.0-4.3); Hematocrit 43.8 % (35.5-45.6); Hemoglobin 15.3 gm/dl (11.8-15.2); Lymphocytes # (Auto) 2.1 K/mm3 (1.2-5.4); Lymphocytes % (Auto) 33.8 % (13.4-35.0); Mean Corpuscular HGB Conc 35 % (32-34); Mean Corpuscular Volume 93 fl (84-94); Monocytes # (Auto) 0.4 K/mm3 (0.0-0.8); Monocytes % (Auto) 6.6 % (0.0-7.3); Platelet Count 202 K/mm3 (140-440); Red Blood Count 4.73 M/mm3 (3.65-5.03); Red Cell Distribution Width 13.8 % (13.2-15.2)
[2019-05-29 13:12] LABS: INR 1.05 (0.87-1.13)
[2019-05-29 13:13] LABS: Partial Thromboplastin Time 28.7 Sec. (24.2-36.6)
[2019-05-29 13:23] LABS: BUN/Creatinine Ratio 10; Blood Urea Nitrogen 9 mg/dL (9-20); Calcium 9.6 mg/dL (8.4-10.2); Hemolysis Index 8
--- NOTE | 2019-05-29 17:28 | Emergency Department Report ---
ED General Adult HPI - General Chief complaint: Chest Pain Stated complaint: CHEST PAIN Time Seen by Provider: 05/29/19 16:11 Source: patient Mode of arrival: Ambulatory Limitations: No Limitations - History of Present Illness Initial comments: Patient presents to the emergency department with a chief complaint of chest pain that started 3 days ago. She states the chest pain started on the left side of his chest and radiating to the right chest. Patient states the pain has been continuous for the last 3 days. Patient has a history of blood clots and SVT. Patient denies of having a stress test. -: Sudden Location: chest Severity scale (0 -10): 5 Quality: aching Consistency: constant Improves with: none Worsens with: none Associated Symptoms: denies other symptoms Treatments Prior to Arrival: none - Related Data Previous Rx's Medication Instructions Recorded Last Taken Type Amoxicillin/Potassium Clav 1 each PO BID #20 tablet 04/29/18 Unknown Rx [Augmentin 875-125 Tablet] Ibuprofen [Ibuprofen 800] 800 mg PO TID PRN #30 tablet 04/29/18 Unknown Rx Oxymetazoline 0.05% [Afrin] 2 spray NS BID 3 Days #1 bottle 04/29/18 Unknown Rx Ranitidine HCl [Heartburn Relief] 75 mg PO BID 30 Days #60 tablet 12/14/18 Unknown Rx Famotidine [Pepcid] 20 mg PO BID #30 tablet 03/31/19 Unknown Rx Naproxen [Naprosyn] 500 mg PO BID PRN #20 tablet 05/29/19 Unknown Rx Allergies Allergy/AdvReac Type Severity Reaction Status Date / Time No Known Allergies Allergy Verified 03/31/19 16:47 ED Review of Systems ROS: Stated complaint: CHEST PAIN Other details as noted in HPI Constitutional: denies: chills, fever Eyes: denies: eye pain, eye discharge, vision change ENT: denies: ear pain, throat pain Respiratory: denies: cough, shortness of breath, wheezing Cardiovascular: chest pain. denies: palpitations Endocrine: no symptoms reported Gastrointestinal: denies: abdominal pain, nausea, diarrhea Genitourinary: denies: urgency, dysuria Musculoskeletal: denies: back pain, joint swelling, arthralgia Skin: denies: rash, lesions Neurological: denies: headache, weakness, paresthesias Psychiatric: denies: anxiety, depression Hematological/Lymphatic: denies: easy bleeding, easy bruising ED Past Medical Hx - Past Medical History Previous Medical History?: Yes Hx Psychiatric Treatment: Yes (anxiety, SCHIZOPHRENIA) Additional medical history: DVT left leg. SVT - Social History Smoking Status: Current Every Day Smoker Substance Use Type: Marijuana - Medications Home Medications: Home Medications Medication Instructions Recorded Confirmed Last Taken Type Amoxicillin/Potassium Clav 1 each PO BID #20 tablet 04/29/18 Unknown Rx [Augmentin 875-125 Tablet] Ibuprofen [Ibuprofen 800] 800 mg PO TID PRN #30 tablet 04/29/18 Unknown Rx Oxymetazoline 0.05% [Afrin] 2 spray NS BID 3 Days #1 bottle 04/29/18 Unknown Rx Ranitidine HCl [Heartburn Relief] 75 mg PO BID 30 Days #60 tablet 12/14/18 Unknown Rx Famotidine [Pepcid] 20 mg PO BID #30 tablet 03/31/19 Unknown Rx Naproxen [Naprosyn] 500 mg PO BID PRN #20 tablet 05/29/19 Unknown Rx ED Physical Exam - General Limitations: No Limitations General appearance: alert, in no apparent distress - Head Head exam: Present: atraumatic, normocephalic - Eye Eye exam: Present: normal appearance, PERRL, EOMI - ENT ENT exam: Present: mucous membranes moist - Neck Neck exam: Present: normal inspection - Respiratory Respiratory exam: Present: normal lung sounds bilaterally. Absent: respiratory distress - Cardiovascular Cardiovascular Exam: Present: regular rate, normal rhythm. Absent: systolic murmur, diastolic murmur, rubs, gallop - GI/Abdominal GI/Abdominal exam: Present: soft, normal bowel sounds. Absent: distended, tenderness - Rectal Rectal exam: Present: deferred - Extremities Exam Extremities exam: Present: normal inspection - Back Exam Back exam: Present: normal inspection - Neurological Exam Neurological exam: Present: alert, oriented X3, CN II-XII intact. Absent: motor sensory deficit - Psychiatric Psychiatric exam: Present: normal affect, normal mood - Skin Skin exam: Present: warm, dry, intact, normal color. Absent: rash ED Course Vital Signs 05/29/19 05/29/19 05/29/19 11:42 15:26 15:27 Temperature 98.4 F 98.7 F Pulse Rate 97 H 77 Respiratory 16 15 15 Rate Blood Pressure 129/90 Blood Pressure 115/69 [Left] O2 Sat by Pulse 100 100 Oximetry 05/29/19 05/29/19 05/29/19 15:30 16:00 16:30 Temperature Pulse Rate 81 77 71 Respiratory 18 17 14 Rate Blood Pressure 117/63 101/51 116/70 Blood Pressure [Left] O2 Sat by Pulse 96 97 96 Oximetry 05/29/19 05/29/19 05/29/19 17:00 17:30 18:00 Temperature Pulse Rate 63 83 61 Respiratory 16 14 17 Rate Blood Pressure 117/93 121/80 116/64 Blood Pressure [Left] O2 Sat by Pulse 98 98 97 Oximetry ED Medical Decision Making - Lab Data Result diagrams: 05/29/19 12:20 05/29/19 12:20 Lab Results 05/29/19 05/29/19 05/29/19 Range/Units 12:20 12:20 12:20 WBC 6.1 (4.5-11.0) K/mm3 RBC 4.73 (3.65-5.03) M/mm3 Hgb 15.3 H (11.8-15.2) gm/dl Hct 43.8 (35.5-45.6) % MCV 93 (84-94) fl MCH 32 (28-32) pg MCHC 35 H (32-34) % RDW 13.8 (13.2-15.2) % Plt Count 202 (140-440) K/mm3 Lymph % (Auto) 33.8 (13.4-35.0) % [place] % (Auto) 6.6 (0.0-7.3) % Eos % (Auto) 0.5 (0.0-4.3) % Baso % (Auto) 0.8 (0.0-1.8) % Lymph # 2.1 (1.2-5.4) K/mm3 [place] # 0.4 (0.0-0.8) K/mm3 Eos # 0.0 (0.0-0.4) K/mm3 Baso # 0.0 (0.0-0.1) K/mm3 Seg Neutrophils % 58.3 (40.0-70.0) % Seg Neutrophils # 3.6 (1.8-7.7) K/mm3 PT 13.8 (12.2-14.9) Sec. INR 1.05 (0.87-1.13) APTT 28.7 (24.2-36.6) Sec. D-Dimer 178.10 (0-234) ng/mlDDU Sodium 142 (137-145) mmol/L Potassium 4.2 (3.6-5.0) mmol/L Chloride 106.0 (98-107) mmol/L Carbon Dioxide 20 L (22-30) mmol/L Anion Gap 20 mmol/L BUN 9 (9-20) mg/dL Creatinine 0.9 (0.8-1.5) mg/dL Estimated GFR > 60 ml/min BUN/Creatinine Ratio 10 % Glucose 119 H (75-100) mg/dL Calcium 9.6 (8.4-10.2) mg/dL Troponin T (0.00-0.029) ng/mL 05/29/19 05/29/19 Range/Units 13:00 17:53 WBC (4.5-11.0) K/mm3 RBC (3.65-5.03) M/mm3 Hgb (11.8-15.2) gm/dl Hct (35.5-45.6) % MCV (84-94) fl MCH (28-32) pg MCHC (32-34) % RDW (13.2-15.2) % Plt Count (140-440) K/mm3 Lymph % (Auto) (13.4-35.0) % [place] % (Auto) (0.0-7.3) % Eos % (Auto) (0.0-4.3) % Baso % (Auto) (0.0-1.8) % Lymph # (1.2-5.4) K/mm3 [place] # (0.0-0.8) K/mm3 Eos # (0.0-0.4) K/mm3 Baso # (0.0-0.1) K/mm3 Seg Neutrophils % (40.0-70.0) % Seg Neutrophils # (1.8-7.7) K/mm3 PT (12.2-14.9) Sec. INR (0.87-1.13) APTT (24.2-36.6) Sec. D-Dimer (0-234) ng/mlDDU Sodium (137-145) mmol/L Potassium (3.6-5.0) mmol/L Chloride (98-107) mmol/L Carbon Dioxide (22-30) mmol/L Anion Gap mmol/L BUN (9-20) mg/dL Creatinine (0.8-1.5) mg/dL Estimated GFR ml/min BUN/Creatinine Ratio % Glucose (75-100) mg/dL Calcium (8.4-10.2) mg/dL Troponin T < 0.010 < 0.010 (0.00-0.029) ng/mL - EKG Data -: EKG Interpreted by Me EKG shows normal: sinus rhythm Rate: normal - Radiology Data Radiology results: report reviewed - Medical Decision Making DISCUSSED RESULTS WITH PATIENT Critical care attestation.: If time is entered above; I have spent that time in minutes in the direct care of this critically ill patient, excluding procedure time. ED Disposition Clinical Impression: Nonspecific chest pain, Pleurisy Disposition: TO HOME OR SELFCARE Is pt being admited?: No Does the pt Need Aspirin: No Condition: Stable Instructions: Chest Pain (ED), Pleurisy (ED), Noncardiac Chest Pain (ED) Additional Instructions: return if worse Prescriptions: Naproxen [Naprosyn] 500 mg PO BID PRN #20 tablet PRN Reason: pain Referrals: PRIMARY CAREMD [Primary Care Provider] - 3-5 Days [facility] [Provider Group] - 3-5 Days [facility] [Provider Group] - 3-5 Days MARYJO STEELE MD [Staff Physician] - 3-5 Days Time of Disposition: 19:37
[2019-05-29 18:29] VITALS: BP 116/64
--- NOTE | 2019-05-29 19:41 | XRay Report ---
CHEST 1 VIEW INDICATION: MAIN: chest pain; Pt. c/o chest pain. Pt. has hx of DVT and SVT. . COMPARISON: 05/06/2019 FINDINGS: Support devices: None. Heart: Within normal limits. Lungs/Pleura: No acute air space or interstitial disease. Additional findings: None. IMPRESSION: No acute abnormality. Signer Name: Baldomero Villanueva MD Signed: 05/29/2019 7:37 PM Workstation Name: [id number]
== END 2019-05-29 19:53 | disposition home or self-care (01) ==
LOC: ED 10:50
DX: R09.1 Pleurisy (principal); F41.9 Anxiety disorder, unspecified; F17.200 Nicotine dependence, unspecified, uncomplicated; F12.10 Cannabis abuse, uncomplicated; Z79.1 Long term (current) use of non-steroidal anti-inflammatories (NSAID); Z79.2 Long term (current) use of antibiotics; Z79.899 Other long term (current) drug therapy
CPT/HCPCS: 36415; 71045; 80048; 84484; 85025; 85379; 85610; 85730; 93005; 93010

== ENCOUNTER 2019-06-23 03:22 | Emergency (ER) | payer MEDICARE ==
[2019-06-23] MEDS ORDERED: ASPIRIN 325 MG TAB PO ONE (03:32)
--- NOTE | 2019-06-23 03:59 | XRay Report ---
CHEST 1 VIEW INDICATION: Chest Pain. COMPARISON: 05/29/2019 FINDINGS: Support devices: None. Heart: Normal. Lungs/Pleura: No acute pulmonary or pleural findings. IMPRESSION: 1. No acute findings. Signer Name: Jay Che MD Signed: 06/23/2019 3:55 AM Workstation Name: [id number]
[2019-06-23 04:00] LABS: Basophils % (Auto) 0.5 % (0.0-1.8); Eosinophils # (Auto) 0.2 K/mm3 (0.0-0.4); Hematocrit 42.5 % (35.5-45.6); Hemoglobin 14.2 gm/dl (11.8-15.2); Lymphocytes # (Auto) 3.1 K/mm3 (1.2-5.4); Lymphocytes % (Auto) 39.6 % (13.4-35.0); Mean Corpuscular HGB Conc 33 % (32-34); Mean Corpuscular Volume 92 fl (84-94); Monocytes # (Auto) 0.6 K/mm3 (0.0-0.8); Monocytes % (Auto) 7.6 % (0.0-7.3); Platelet Count 195 K/mm3 (140-440); Red Blood Count 4.62 M/mm3 (3.65-5.03); Red Cell Distribution Width 13.4 % (13.2-15.2)
[2019-06-23 04:20] LABS: BUN/Creatinine Ratio 11; Blood Urea Nitrogen 11 mg/dL (9-20); Calcium 9.5 mg/dL (8.4-10.2); Hemolysis Index 21
--- NOTE | 2019-06-23 06:51 | Emergency Department Report ---
ED Chest Pain HPI - General Chief Complaint: Chest Pain Stated Complaint: CHEST PAIN Time Seen by Provider: 06/23/19 06:09 Source: patient, RN notes reviewed, old records reviewed Mode of arrival: Ambulatory Limitations: No Limitations - History of Present Illness Initial Comments: The patient is a 43-year-old gentleman. The patient presents to the ER with a complaint of chest pain. It is currently 6:45 in the morning. The chest pain started at 10:00 yesterday evening. The chest pain is intermittently on the right and left side of the chest. It lasts for a few seconds to a few minutes. It does not radiate to the back, arms or neck. There were no exacerbating or relieving factors. The patient denies recent travel, surgeries, leg pain and no leg swelling. Of note, the patient has had multiple visits to this department for chest pain within the past few weeks. He has had multiple negative troponins, and negative d-dimer. The patient denies additional complaints at this time. The patient does not endorse any exacerbating or relieving factors to his chest pain. MD Complaint: chest pain -: hour(s) Onset: during rest Pain Location: substernal, left chest, right chest Severity: mild Quality: aching Consistency: intermittent Improves With: nothing Worsens With: nothing Aspirin use within the Past 7 Days: (0) No - Related Data On Oral Contraceptives: No Previous Rx's Medication Instructions Recorded Last Taken Type Amoxicillin/Potassium Clav 1 each PO BID #20 tablet 04/29/18 Unknown Rx [Augmentin 875-125 Tablet] Ibuprofen [Ibuprofen 800] 800 mg PO TID PRN #30 tablet 04/29/18 Unknown Rx Oxymetazoline 0.05% [Afrin] 2 spray NS BID 3 Days #1 bottle 04/29/18 Unknown Rx Ranitidine HCl [Heartburn Relief] 75 mg PO BID 30 Days #60 tablet 12/14/18 Unknown Rx Famotidine [Pepcid] 20 mg PO BID #30 tablet 03/31/19 Unknown Rx Naproxen [Naprosyn] 500 mg PO BID PRN #20 tablet 05/29/19 Unknown Rx Allergies Allergy/AdvReac Type Severity Reaction Status Date / Time No Known Allergies Allergy Verified 03/31/19 16:47 Heart Score - HEART Score History: Slightly suspicious EKG: Non-specific Age: < 45 Risk factors: No known risk factors Troponin: < normal limit HEART Score: 1 - Critical Actions Critical Actions: 0-3 pts:0.9-1.7%risk of adverse cardiac event.Candidate for discharge ED Review of Systems ROS: Stated complaint: CHEST PAIN Other details as noted in HPI Constitutional: denies: fever Eyes: denies: eye discharge ENT: denies: congestion Respiratory: denies: wheezing Cardiovascular: chest pain Gastrointestinal: denies: nausea, vomiting Genitourinary: denies: dysuria Musculoskeletal: as per HPI. denies: myalgia Skin: denies: lesions Neurological: as per HPI Psychiatric: as per HPI Hematological/Lymphatic: as per HPI ED Past Medical Hx - Past Medical History Previous Medical History?: Yes Hx Psychiatric Treatment: Yes (anxiety, SCHIZOPHRENIA) Additional medical history: DVT left leg. SVT - Surgical History Past Surgical History?: No - Social History Smoking Status: Current Every Day Smoker Substance Use Type: None - Medications Home Medications: Home Medications Medication Instructions Recorded Confirmed Last Taken Type Amoxicillin/Potassium Clav 1 each PO BID #20 tablet 04/29/18 Unknown Rx [Augmentin 875-125 Tablet] Ibuprofen [Ibuprofen 800] 800 mg PO TID PRN #30 tablet 04/29/18 Unknown Rx Oxymetazoline 0.05% [Afrin] 2 spray NS BID 3 Days #1 bottle 04/29/18 Unknown Rx Ranitidine HCl [Heartburn Relief] 75 mg PO BID 30 Days #60 tablet 12/14/18 Unknown Rx Famotidine [Pepcid] 20 mg PO BID #30 tablet 03/31/19 Unknown Rx Naproxen [Naprosyn] 500 mg PO BID PRN #20 tablet 05/29/19 Unknown Rx ED Physical Exam - General Limitations: No Limitations General appearance: alert, in no apparent distress - Head Head exam: Present: atraumatic, normocephalic - Eye Eye exam: Present: normal appearance, EOMI. Absent: nystagmus - ENT ENT exam: Present: normal exam, normal orophraynx, mucous membranes moist, normal external ear exam - Neck Neck exam: Present: normal inspection, full ROM. Absent: tenderness, meningismus - Respiratory Respiratory exam: Present: normal lung sounds bilaterally. Absent: respiratory distress - Cardiovascular Cardiovascular Exam: Present: regular rate, normal rhythm, normal heart sounds. Absent: bradycardia, tachycardia, irregular rhythm, systolic murmur, diastolic murmur, rubs, gallop - GI/Abdominal GI/Abdominal exam: Present: soft, normal bowel sounds. Absent: distended, tenderness, guarding, rebound, rigid, pulsatile mass - Rectal Rectal exam: Present: deferred - Extremities Exam Extremities exam: Present: normal inspection, full ROM, other (2+ pulses noted in the bilateral upper and lower extremities. There is no palpable cord. negative Homans sign. Muscular compartments are soft. The pelvis is stable.). Absent: pedal edema, calf tenderness - Back Exam Back exam: Present: normal inspection, full ROM. Absent: tenderness, CVA tenderness (R), CVA tenderness (L), paraspinal tenderness, vertebral tenderness - Neurological Exam Neurological exam: Present: alert, other (There is no facial droop. The tongue is midline. Extraocular movements are intact bilaterally. There is 5 out of 5 strength in bilateral upper and lower extremities. Sensation is intact to light touch bilateral upper and lower extremities. ). Absent: motor sensory deficit - Psychiatric Psychiatric exam: Present: flat affect - Skin Skin exam: Present: warm, dry, intact, normal color. Absent: rash ED Course Vital Signs 06/23/19 06/23/19 06/23/19 03:27 05:24 05:31 Temperature 97.6 F Pulse Rate 89 76 87 Respiratory 18 19 Rate Blood Pressure 121/82 125/88 O2 Sat by Pulse 97 99 Oximetry 06/23/19 06/23/19 06/23/19 05:45 06:00 06:15 Temperature Pulse Rate 78 72 70 Respiratory 14 14 15 Rate Blood Pressure 125/88 117/79 125/88 O2 Sat by Pulse 98 97 99 Oximetry 06/23/19 07:00 Temperature Pulse Rate 73 Respiratory 14 Rate Blood Pressure 112/77 O2 Sat by Pulse 98 Oximetry - Reevaluation(s) Reevaluation #1: 06/23/19 08:11 Troponin negative x2. Patient resting comfortably for hours, in no acute distress. He is medically suitable to follow-up with an outpatient primary care doctor or tool supervisor to complete an outpatient cardiac risk stratification MILLICENT score - Millicent Score Age > 65: (0) No Aspirin use within the Past 7 Days: (0) No 3 or more CAD Risk Factors: (0) No 2 or more Angina events in past 24 hrs: (0) No Known CAD with more than 50% Stenosis: (0) No Elevated Cardiac Markers: (0) No ST Deviation Greater than 0.5mm: (0) No MILLICENT Score: 0 ED Medical Decision Making - Lab Data Result diagrams: 06/23/19 03:39 06/23/19 03:39 Vital Signs 06/23/19 06/23/19 06/23/19 03:27 05:24 05:31 Temperature 97.6 F Pulse Rate 89 76 87 Respiratory 18 19 Rate Blood Pressure 121/82 125/88 O2 Sat by Pulse 97 99 Oximetry 06/23/19 06/23/19 06/23/19 05:45 06:00 06:15 Temperature Pulse Rate 78 72 70 Respiratory 14 14 15 Rate Blood Pressure 125/88 117/79 125/88 O2 Sat by Pulse 98 97 99 Oximetry Lab Results 06/23/19 06/23/19 Range/Units 03:39 03:39 WBC 7.8 (4.5-11.0) K/mm3 RBC 4.62 (3.65-5.03) M/mm3 Hgb 14.2 (11.8-15.2) gm/dl Hct 42.5 (35.5-45.6) % MCV 92 (84-94) fl MCH 31 (28-32) pg MCHC 33 (32-34) % RDW 13.4 (13.2-15.2) % Plt Count 195 (140-440) K/mm3 Lymph % (Auto) 39.6 H (13.4-35.0) % Evans % (Auto) 7.6 H (0.0-7.3) % Eos % (Auto) 2.0 (0.0-4.3) % Baso % (Auto) 0.5 (0.0-1.8) % Lymph # 3.1 (1.2-5.4) K/mm3 Evans # 0.6 (0.0-0.8) K/mm3 Eos # 0.2 (0.0-0.4) K/mm3 Baso # 0.0 (0.0-0.1) K/mm3 Seg Neutrophils % 50.3 (40.0-70.0) % Seg Neutrophils # 3.9 (1.8-7.7) K/mm3 Sodium 139 (137-145) mmol/L Potassium 3.8 (3.6-5.0) mmol/L Chloride 102.5 (98-107) mmol/L Carbon Dioxide 23 (22-30) mmol/L Anion Gap 17 mmol/L BUN 11 (9-20) mg/dL Creatinine 1.0 (0.8-1.5) mg/dL Estimated GFR > 60 ml/min BUN/Creatinine Ratio 11 % Glucose 92 (75-100) mg/dL Calcium 9.5 (8.4-10.2) mg/dL Troponin T < 0.010 (0.00-0.029) ng/mL - EKG Data -: EKG Interpreted by Oh EKG shows normal: sinus rhythm Rate: normal - EKG Data When compared to previous EKG there are: no significant change Interpretation: unchanged when compared t 06/23/19 06:49 EKG #1 shows a sinus rhythm, 74 bpm, normal axis, intervals within normal limits, high left ventricular voltage, nonspecific T wave abnormalities, flattened T waves. This is not consistent with a STEMI. Unchanged from prior EKG from May 29, 2019 EKG #2 appears to be unchanged from prior. - Radiology Data Radiology results: pending, report reviewed, image reviewed X-ray of the chest is negative for acute disease - Medical Decision Making Differential diagnosis, including but not limited to: GERD, gastritis, hiatal hernia, pneumonia, costochondritis, acute coronary syndrome Assessment and plan: 43-year-old gentleman with recurrent complaint of chest pain. The patient has been seen in this department multiple times in the past few weeks for similar complaints. Objective testing typically is unremarkable. This includes multiple negative troponins, unchanged EKGs, negative d-dimer, unremarkable x-ray of the chest. Today, the patient is sleeping comfortably on her stretcher, and he is not in any acute distress. His physical examination is benign, unremarkable, and within normal limits. Objective testing today demonstrates unchanged EKG x2, troponin negative x2. Patient at low risk for major adverse cardiac event as per heart score. He is not tachycardic, tachypneic or hypoxic, he recently had a negative d-dimer, this is very unlikely to be DVT and/or pulmonary embolism. He has equal pulses in the upper and lower extremities, not especially hypertensive, unremarkable x-ray of the chest, this is very unlikely to be aortic disease. The patient is very unlikely to have an emergency medical condition at this point today. He will need to follow-up with an outpatient primary care doctor or cardiology. Critical care attestation.: If time is entered above; I have spent that time in minutes in the direct care of this critically ill patient, excluding procedure time. ED Disposition Clinical Impression: History of chest pain Disposition: DC-01 TO HOME OR SELFCARE Is pt being admited?: No Does the pt Need Aspirin: No Condition: Stable Additional Instructions: Avoid consumption of Motrin, ibuprofen, Naprosyn, Aleve. Avoid consumption of heavy and/or spicy foods. Follow-up with a primary care doctor or tool supervisor within the next 3 to 5 days. Patient may take Pepcid [id number], 20 mg, once every 12-24 hours, and take aspirin [id number], 324 mg by mouth. Avoid consumption of alcohol. Please return to the emergency room right away with new, worsened or different symptoms, or symptoms not present on the initial emergency room evaluation. Referrals: [facility] [Provider Group] - 3-5 Days [facility] [Provider Group] - 3-5 Days [facility] [Provider Group] - 3-5 Days [facility] [Provider Group] - 3-5 Days
[2019-06-23 07:41] VITALS: BP 112/77
== END 2019-06-23 08:30 | disposition home or self-care (01) ==
LOC: ED 03:22
DX: R07.9 Chest pain, unspecified (principal); F20.9 Schizophrenia, unspecified; F17.200 Nicotine dependence, unspecified, uncomplicated
CPT/HCPCS: 36415; 71045; 80048; 84484; 85025; 93005; 93010; 99284

== ENCOUNTER 2019-08-22 14:28 | Emergency (ER) | payer MEDICARE ==
[2019-08-22] MEDS ORDERED: SODIUM CHLORIDE 0.9% 1000 ML 1,000 ML IV ONE ×2 (14:54→16:10)
[2019-08-22] MEDS ORDERED: SODIUM CHLORIDE 0.9% 1000 ML 1,000 ML ONE (14:56)
[2019-08-22 15:07] LABS: Basophils # (Auto) 0.1 K/mm3 (0.0-0.1); Basophils % (Auto) 0.6 % (0.0-1.8); Eosinophils # (Auto) 0.1 K/mm3 (0.0-0.4); Eosinophils % (Auto) 0.8 % (0.0-4.3); Hematocrit 44.3 % (35.5-45.6); Hemoglobin 15.4 gm/dl (11.8-15.2); Lymphocytes # (Auto) 2.5 K/mm3 (1.2-5.4); Lymphocytes % (Auto) 27.2 % (13.4-35.0); Mean Corpuscular HGB Conc 35 % (32-34); Mean Corpuscular Volume 91 fl (84-94); Monocytes # (Auto) 0.8 K/mm3 (0.0-0.8); Monocytes % (Auto) 8.6 % (0.0-7.3); Platelet Count 207 K/mm3 (140-440); Red Blood Count 4.88 M/mm3 (3.65-5.03); Red Cell Distribution Width 13.6 % (13.2-15.2)
[2019-08-22 15:18] LABS: INR 1.07 (0.87-1.13)
[2019-08-22 15:19] LABS: Partial Thromboplastin Time 26.9 Sec. (24.2-36.6)
[2019-08-22 15:26] LABS: BUN/Creatinine Ratio 9; Blood Urea Nitrogen 8 mg/dL (9-20); Calcium 9.2 mg/dL (8.4-10.2); Hemolysis Index 63
--- NOTE | 2019-08-22 15:28 | XRay Report ---
CHEST 1 VIEW INDICATION / CLINICAL INFORMATION: Chest Pain. COMPARISON: None available. FINDINGS: SUPPORT DEVICES: None. HEART / MEDIASTINUM: No significant abnormality. LUNGS / PLEURA: No significant pulmonary or pleural abnormality. No pneumothorax. ADDITIONAL FINDINGS: No significant additional findings. IMPRESSION: 1. No acute findings. Signer Name: Arturo Dejesus MD Signed: 08/22/2019 3:23 PM Workstation Name: [id number]
[2019-08-22 16:45] LABS: Amphetamine Screen,Urine PRESUMPTIVE NEGATIVE; Benzodiazepines Screen,Urine PRESUMPTIVE NEGATIVE; Cocaine Screen,Urine PRESUMPTIVE NEGATIVE; Methadone Screen,Urine PRESUMPTIVE NEGATIVE; Opiate Screen,Urine PRESUMPTIVE NEGATIVE
[2019-08-22 17:15] VITALS: BP 122/81
[2019-08-22 17:17] LABS: Cannabinoid Screen,Urine PRESUMPTIVE POSITIVE
--- NOTE | 2019-08-22 17:21 | Emergency Department Report ---
ED General Adult HPI - General Chief complaint: Dyspnea/Respdistress Stated complaint: RT ARM SWELLING Time Seen by Provider: 08/22/19 14:45 Source: patient Mode of arrival: Ambulatory Limitations: No Limitations - History of Present Illness Initial comments: Patient is a 44-year-old F Macanese male with a past medical history of schizophrenia who is one-week status post cardiac cath. Patient's cardiac cath was negative.. Patient has had no further chest pain but states he has intermittent palpitations. He states that especially this morning he is having episodes where his heart is racing. He states he has a think of things to calm him down. He denies nausea vomiting diarrhea who has had so dizziness associated with the palpitations. Associated Symptoms: shortness of breath, weakness. denies: chest pain, cough, diaphoresis, fever/chills, syncope - Related Data Home Medications Medication Instructions Recorded Confirmed Last Taken Paliperidone Palmitate(Nf) [Invega 234 mg IM Q30D 08/16/19 08/16/19 1 Week Ago Sustenna(Nf)] ~08/09/19 Previous Rx's Medication Instructions Recorded Last Taken Type Acetaminophen [Tylenol] 325 mg PO Q4H PRN #30 capsule 08/16/19 Unknown Rx Nicotine [Habitrol] 21 mg TD DAILY #15 patch 08/16/19 Unknown Rx Pantoprazole [Protonix] 40 mg PO QDAY #30 tablet 08/16/19 Unknown Rx Allergies Allergy/AdvReac Type Severity Reaction Status Date / Time No Known Allergies Allergy Verified 03/31/19 16:47 ED Review of Systems ROS: Stated complaint: RT ARM SWELLING Other details as noted in HPI Comment: All other systems reviewed and negative ED Past Medical Hx - Past Medical History Previous Medical History?: Yes Hx Congestive Heart Failure: No Hx Diabetes: No Hx Deep Vein Thrombosis: Yes (right leg) Hx Psychiatric Treatment: Yes (anxiety, SCHIZOPHRENIA) Hx Asthma: No Hx COPD: No Hx HIV: (denies) Additional medical history: DVT left leg. SVT - Surgical History Past Surgical History?: No - Social History Smoking Status: Current Every Day Smoker Substance Use Type: None - Medications Home Medications: Home Medications Medication Instructions Recorded Confirmed Last Taken Type Acetaminophen [Tylenol] 325 mg PO Q4H PRN #30 capsule 08/16/19 Unknown Rx Nicotine [Habitrol] 21 mg TD DAILY #15 patch 08/16/19 Unknown Rx Paliperidone Palmitate(Nf) [Invega 234 mg IM Q30D 08/16/19 08/16/19 1 Week Ago History Sustenna(Nf)] ~08/09/19 Pantoprazole [Protonix] 40 mg PO QDAY #30 tablet 08/16/19 Unknown Rx ED Physical Exam - General Limitations: No Limitations General appearance: alert, in no apparent distress - Head Head exam: Present: atraumatic, normocephalic - Eye Eye exam: Present: normal appearance - ENT ENT exam: Present: mucous membranes moist - Neck Neck exam: Present: normal inspection - Respiratory Respiratory exam: Present: normal lung sounds bilaterally. Absent: respiratory distress, wheezes, rales - Cardiovascular Cardiovascular Exam: Present: tachycardia (Intermittent). Absent: systolic murmur, diastolic murmur, rubs, gallop - GI/Abdominal GI/Abdominal exam: Present: soft, normal bowel sounds. Absent: distended, tenderness, guarding, rebound - Rectal Rectal exam: Present: deferred - Extremities Exam Extremities exam: Present: normal inspection, other (Patient with some bruising to the right wrist) - Back Exam Back exam: Present: normal inspection - Neurological Exam Neurological exam: Present: alert, oriented X3 - Psychiatric Psychiatric exam: Present: normal affect, normal mood - Skin Skin exam: Present: warm, dry, intact, normal color. Absent: rash ED Course Vital Signs 08/22/19 08/22/19 08/22/19 14:32 14:48 14:50 Temperature 98.4 F Pulse Rate 194 H 124 H 183 H Respiratory 16 23 13 Rate Blood Pressure 80/56 107/67 O2 Sat by Pulse 97 98 96 Oximetry 08/22/19 08/22/19 08/22/19 15:00 15:10 15:20 Temperature Pulse Rate 185 H 85 75 Respiratory 25 H 14 14 Rate Blood Pressure 107/67 107/67 107/70 O2 Sat by Pulse 98 99 100 Oximetry 08/22/19 08/22/19 08/22/19 15:30 15:40 15:50 Temperature Pulse Rate 77 Respiratory 16 16 14 Rate Blood Pressure 113/66 113/66 106/69 O2 Sat by Pulse 100 100 100 Oximetry 08/22/19 08/22/19 08/22/19 16:00 16:10 16:20 Temperature Pulse Rate 73 73 73 Respiratory 17 15 17 Rate Blood Pressure 102/72 102/72 106/68 O2 Sat by Pulse 100 100 98 Oximetry 08/22/19 08/22/19 08/22/19 16:30 16:40 16:50 Temperature Pulse Rate 79 69 74 Respiratory 17 17 19 Rate Blood Pressure 111/74 111/74 112/75 O2 Sat by Pulse 100 97 Oximetry 08/22/19 17:00 Temperature Pulse Rate 71 Respiratory 17 Rate Blood Pressure 122/81 O2 Sat by Pulse 100 Oximetry - Reevaluation(s) Reevaluation #1: 08/22/19 17:23 Vital Signs 08/22/19 08/22/19 08/22/19 14:32 14:48 14:50 Temperature 98.4 F Pulse Rate 194 H 124 H 183 H Respiratory 16 23 13 Rate Blood Pressure 80/56 107/67 O2 Sat by Pulse 97 98 96 Oximetry 08/22/19 08/22/19 08/22/19 15:00 15:10 15:20 Temperature Pulse Rate 185 H 85 75 Respiratory 25 H 14 14 Rate Blood Pressure 107/67 107/67 107/70 O2 Sat by Pulse 98 99 100 Oximetry 08/22/19 08/22/19 08/22/19 15:30 15:40 15:50 Temperature Pulse Rate 77 Respiratory 16 16 14 Rate Blood Pressure 113/66 113/66 106/69 O2 Sat by Pulse 100 100 100 Oximetry 08/22/19 08/22/19 08/22/19 16:00 16:10 16:20 Temperature Pulse Rate 73 73 73 Respiratory 17 15 17 Rate Blood Pressure 102/72 102/72 106/68 O2 Sat by Pulse 100 100 98 Oximetry 08/22/19 08/22/19 08/22/19 16:30 16:40 16:50 Temperature Pulse Rate 79 69 74 Respiratory 17 17 19 Rate Blood Pressure 111/74 111/74 112/75 O2 Sat by Pulse 100 97 Oximetry 08/22/19 17:00 Temperature Pulse Rate 71 Respiratory 17 Rate Blood Pressure 122/81 O2 Sat by Pulse 100 Oximetry ED Medical Decision Making - Lab Data Result diagrams: 08/22/19 14:53 08/22/19 14:53 Lab Results 08/22/19 08/22/19 08/22/19 Range/Units 14:53 14:53 14:58 WBC 9.0 (4.5-11.0) K/mm3 RBC 4.88 (3.65-5.03) M/mm3 Hgb 15.4 H (11.8-15.2) gm/dl Hct 44.3 (35.5-45.6) % MCV 91 (84-94) fl MCH 32 (28-32) pg MCHC 35 H (32-34) % RDW 13.6 (13.2-15.2) % Plt Count 207 (140-440) K/mm3 Lymph % (Auto) 27.2 (13.4-35.0) % Slope % (Auto) 8.6 H (0.0-7.3) % Eos % (Auto) 0.8 (0.0-4.3) % Baso % (Auto) 0.6 (0.0-1.8) % Lymph # 2.5 (1.2-5.4) K/mm3 Slope # 0.8 (0.0-0.8) K/mm3 Eos # 0.1 (0.0-0.4) K/mm3 Baso # 0.1 (0.0-0.1) K/mm3 Seg Neutrophils % 62.8 (40.0-70.0) % Seg Neutrophils # 5.7 (1.8-7.7) K/mm3 PT 14.0 (12.2-14.9) Sec. INR 1.07 (0.87-1.13) APTT 26.9 (24.2-36.6) Sec. Sodium 141 (137-145) mmol/L Potassium 3.6 (3.6-5.0) mmol/L Chloride 106.1 (98-107) mmol/L Carbon Dioxide 22 (22-30) mmol/L Anion Gap 17 mmol/L BUN 8 L (9-20) mg/dL Creatinine 0.9 (0.8-1.5) mg/dL Estimated GFR > 60 ml/min BUN/Creatinine Ratio 9 % Glucose 123 H (75-100) mg/dL Calcium 9.2 (8.4-10.2) mg/dL Troponin T < 0.010 (0.00-0.029) ng/mL Urine Opiates Screen Urine Methadone Screen Ur Barbiturates Screen Ur Phencyclidine Scrn Ur Amphetamines Screen U Benzodiazepines Scrn Urine Cocaine Screen U Marijuana (THC) Screen Drugs of Abuse Note Plasma/Serum Alcohol (0-0.07) % 08/22/19 08/22/19 Range/Units 14:58 16:00 WBC (4.5-11.0) K/mm3 RBC (3.65-5.03) M/mm3 Hgb (11.8-15.2) gm/dl Hct (35.5-45.6) % MCV (84-94) fl MCH (28-32) pg MCHC (32-34) % RDW (13.2-15.2) % Plt Count (140-440) K/mm3 Lymph % (Auto) (13.4-35.0) % Slope % (Auto) (0.0-7.3) % Eos % (Auto) (0.0-4.3) % Baso % (Auto) (0.0-1.8) % Lymph # (1.2-5.4) K/mm3 Slope # (0.0-0.8) K/mm3 Eos # (0.0-0.4) K/mm3 Baso # (0.0-0.1) K/mm3 Seg Neutrophils % (40.0-70.0) % Seg Neutrophils # (1.8-7.7) K/mm3 PT (12.2-14.9) Sec. INR (0.87-1.13) APTT (24.2-36.6) Sec. Sodium (137-145) mmol/L Potassium (3.6-5.0) mmol/L Chloride (98-107) mmol/L Carbon Dioxide (22-30) mmol/L Anion Gap mmol/L BUN (9-20) mg/dL Creatinine (0.8-1.5) mg/dL Estimated GFR ml/min BUN/Creatinine Ratio % Glucose (75-100) mg/dL Calcium (8.4-10.2) mg/dL Troponin T (0.00-0.029) ng/mL Urine Opiates Screen Presumptive negative Urine Methadone Screen Presumptive negative Ur Barbiturates Screen Presumptive negative Ur Phencyclidine Scrn Presumptive negative Ur Amphetamines Screen Presumptive negative U Benzodiazepines Scrn Presumptive negative Urine Cocaine Screen Presumptive negative U Marijuana (THC) Screen Presumptive positive Drugs of Abuse Note Disclamer Plasma/Serum Alcohol < 0.01 (0-0.07) % - EKG Data -: EKG Interpreted by Ne EKG shows normal: intervals, QRS complexes, ST-T waves Rate: tachycardia - EKG Data Interpretation: other (SVT with rate of 178) - Radiology Data Ordering Physician: MELE CATES MD Date of Service: 08/22/19 Procedure(s): XR chest 1V ap Accession Number(s): [id number] cc: MELE CATES MD Fluoro Time In Minutes: CHEST 1 VIEW INDICATION / CLINICAL INFORMATION: Chest Pain. COMPARISON: None available. FINDINGS: SUPPORT DEVICES: None. HEART / MEDIASTINUM: No significant abnormality. LUNGS / PLEURA: No significant pulmonary or pleural abnormality. No pneumothorax. ADDITIONAL FINDINGS: No significant additional findings. IMPRESSION: 1. No acute findings. Signer Name: Arturo Dejesus MD Signed: 08/22/2019 3:23 PM Workstation Name: [id number] - Medical Decision Making On patient's arrival he was hypotensive and having intermittent episodes of what appeared to be SVT. Once fluids were started patient's blood pressure responded well and is episodes of SVT have stopped. Patient was monitored for approximately hour and a half with no further episodes. Patient will be discharged home. Blood pressure was within normal limits at the time of discharge. Patient will be given cardiology for follow-up regarding the SVT. Critical care attestation.: If time is entered above; I have spent that time in minutes in the direct care of this critically ill patient, excluding procedure time. ED Disposition Clinical Impression: SVT (supraventricular tachycardia), Dehydration Disposition: DC-01 TO HOME OR SELFCARE Is pt being admited?: No Does the pt Need Aspirin: No Condition: Stable Instructions: Supraventricular Tachycardia (ED) Referrals: MARTY HARRIS MD [Staff Physician] - 3-5 Days Time of Disposition: 17:24
== END 2019-08-22 17:35 | disposition home or self-care (01) ==
LOC: ED 14:28
DX: I47.1 Supraventricular tachycardia (principal); E86.0 Dehydration; F20.89 Other schizophrenia; F41.9 Anxiety disorder, unspecified; F12.10 Cannabis abuse, uncomplicated; F17.200 Nicotine dependence, unspecified, uncomplicated; Z86.718 Personal history of other venous thrombosis and embolism; Z79.01 Long term (current) use of anticoagulants; Z79.899 Other long term (current) drug therapy
CPT/HCPCS: 36415; 71045; 80048; 80307; 84484; 85025; 85610; 85730; 93005; 96360; 96361; 99284; J7030; 80320; G0480

== ENCOUNTER 2019-09-13 02:07 | Emergency (ER) | payer MEDICARE ==
[2019-09-13] MEDS ORDERED: ASPIRIN 325 MG TAB PO ONE (02:14)
[2019-09-13 02:38] LABS: Basophils % (Auto) 0.5 % (0.0-1.8); Eosinophils % (Auto) 0.5 % (0.0-4.3); Hematocrit 42.6 % (35.5-45.6); Hemoglobin 14.2 gm/dl (11.8-15.2); Lymphocytes # (Auto) 1.7 K/mm3 (1.2-5.4); Lymphocytes % (Auto) 21.7 % (13.4-35.0); Mean Corpuscular HGB Conc 33 % (32-34); Mean Corpuscular Volume 92 fl (84-94); Monocytes # (Auto) 0.5 K/mm3 (0.0-0.8); Monocytes % (Auto) 5.9 % (0.0-7.3); Platelet Count 194 K/mm3 (140-440); Red Blood Count 4.64 M/mm3 (3.65-5.03); Red Cell Distribution Width 13.7 % (13.2-15.2)
[2019-09-13 03:02] LABS: BUN/Creatinine Ratio 10; Blood Urea Nitrogen 10 mg/dL (9-20); Calcium 9.6 mg/dL (8.4-10.2); Hemolysis Index 2
--- NOTE | 2019-09-13 03:13 | XRay Report ---
CHEST 1 VIEW INDICATION / CLINICAL INFORMATION: Chest Pain. COMPARISON: 08/22/2019 FINDINGS: SUPPORT DEVICES: None. HEART / MEDIASTINUM: No significant abnormality. LUNGS / PLEURA: No significant pulmonary or pleural abnormality.. No pneumothorax. ADDITIONAL FINDINGS: No significant additional findings. IMPRESSION: 1. No acute findings. Signer Name: Edward Cox MD Signed: 09/13/2019 3:08 AM Workstation Name: [id number]
--- NOTE | 2019-09-13 03:14 | Emergency Department Report ---
ED Chest Pain HPI - General Chief Complaint: Chest Pain Stated Complaint: CHEST PAIN Time Seen by Provider: 09/13/19 02:56 Source: patient Mode of arrival: Wheelchair Limitations: No Limitations - History of Present Illness Initial Comments: Mr. Peacock is a 44-year-old male with history of schizophrenia SVT who presents with chest pain. He felt a sharp sudden chest pain this evening. He states that he has ablation procedure scheduled for Wednesday. He also recently was tested for COVID-19. Last month he was taken emergently to cardiac catheterizat ion for acute coronary syndrome. Left heart catheterization was negative for coronary artery disease. He currently denies suicidal homicidal ideation. He denies hallucinations. He does smoke tobacco. MD Complaint: chest pain -: Gradual, This evening Onset: during rest Pain Location: substernal, left chest Severity: mild Quality: sharp Consistency: constant Improves With: nothing Worsens With: nothing - Related Data Home Medications Medication Instructions Recorded Confirmed Last Taken Paliperidone Palmitate (Nf) 234 mg IM Q30D 08/16/19 08/16/19 1 Week Ago [Invega Sustenna (Nf)] ~08/09/19 Previous Rx's Medication Instructions Recorded Last Taken Type Acetaminophen [Tylenol] 325 mg PO Q4H PRN #30 capsule 08/16/19 Unknown Rx Nicotine [Habitrol] 21 mg TD DAILY #15 patch 08/16/19 Unknown Rx Pantoprazole [Protonix] 40 mg PO QDAY #30 tablet 08/16/19 Unknown Rx Allergies Allergy/AdvReac Type Severity Reaction Status Date / Time No Known Allergies Allergy Verified 03/31/19 16:47 Heart Score - HEART Score History: Slightly suspicious EKG: Normal Age: < 45 Risk factors: 1-2 risk factors Troponin: < normal limit HEART Score: 1 ED Review of Systems ROS: Stated complaint: CHEST PAIN Other details as noted in HPI Comment: All other systems reviewed and negative Constitutional: denies: fever, malaise Cardiovascular: chest pain Gastrointestinal: denies: abdominal pain, nausea, vomiting ED Past Medical Hx - Past Medical History Previous Medical History?: Yes Hx Congestive Heart Failure: No Hx Diabetes: No Hx Deep Vein Thrombosis: Yes (right leg) Hx Psychiatric Treatment: Yes (anxiety, SCHIZOPHRENIA) Hx Asthma: No Hx COPD: No Hx HIV: (denies) Additional medical history: DVT left leg. SVT - Surgical History Past Surgical History?: No - Social History Smoking Status: Current Every Day Smoker Substance Use Type: Alcohol, Marijuana - Medications Home Medications: Home Medications Medication Instructions Recorded Confirmed Last Taken Type Acetaminophen [Tylenol] 325 mg PO Q4H PRN #30 capsule 08/16/19 Unknown Rx Nicotine [Habitrol] 21 mg TD DAILY #15 patch 08/16/19 Unknown Rx Paliperidone Palmitate (Nf) 234 mg IM Q30D 08/16/19 08/16/19 1 Week Ago History [Invega Sustenna (Nf)] ~08/09/19 Pantoprazole [Protonix] 40 mg PO QDAY #30 tablet 08/16/19 Unknown Rx ED Physical Exam - General Limitations: No Limitations General appearance: alert, in no apparent distress - Head Head exam: Present: atraumatic, normocephalic - Eye Eye exam: Present: normal appearance - ENT ENT exam: Present: mucous membranes moist - Neck Neck exam: Present: normal inspection, full ROM - Respiratory Respiratory exam: Present: normal lung sounds bilaterally. Absent: respiratory distress, wheezes, rales, rhonchi, stridor - Cardiovascular Cardiovascular Exam: Present: regular rate, normal rhythm, normal heart sounds. Absent: systolic murmur, diastolic murmur, rubs, gallop - GI/Abdominal GI/Abdominal exam: Present: soft, normal bowel sounds. Absent: distended, tenderness, guarding, rebound - Rectal Rectal exam: Present: deferred - Extremities Exam Extremities exam: Present: normal inspection - Neurological Exam Neurological exam: Present: alert, oriented X3 - Psychiatric Psychiatric exam: Present: normal affect, normal mood - Skin Skin exam: Present: warm, dry, intact, normal color. Absent: rash ED Course Vital Signs 09/13/19 02:08 Temperature 98.1 F Pulse Rate 89 Respiratory 18 Rate Blood Pressure 127/84 O2 Sat by Pulse 96 Oximetry MILLICENT score - Millicent Score Age > 65: (0) No Aspirin use within the Past 7 Days: (0) No 3 or more CAD Risk Factors: (0) No 2 or more Angina events in past 24 hrs: (0) No Known CAD with more than 50% Stenosis: (0) No Elevated Cardiac Markers: (0) No ST Deviation Greater than 0.5mm: (0) No MILLICENT Score: 0 ED Medical Decision Making - Lab Data Result diagrams: 09/13/19 02:17 09/13/19 02:17 Laboratory Results - last 24 hr 09/13/19 09/13/19 02:17 02:17 WBC 8.0 RBC 4.64 Hgb 14.2 Hct 42.6 MCV 92 MCH 31 MCHC 33 RDW 13.7 Plt Count 194 Lymph % (Auto) 21.7 [place] % (Auto) 5.9 Eos % (Auto) 0.5 Baso % (Auto) 0.5 Lymph # 1.7 [place] # 0.5 Eos # 0.0 Baso # 0.0 Seg Neutrophils % 71.4 H Seg Neutrophils # 5.7 Sodium 140 Potassium 4.1 Chloride 101.0 Carbon Dioxide 25 Anion Gap 18 BUN 10 Creatinine 1.0 Estimated GFR > 60 BUN/Creatinine Ratio 10 Glucose 159 H Calcium 9.6 Troponin T < 0.010 - EKG Data EKG shows normal: sinus rhythm, intervals, QRS complexes, ST-T waves Rate: normal - EKG Data Interpretation: normal EKG - Radiology Data Radiology results: image reviewed My personal interpretation chest radiograph 1 view AP: No pneumothorax no infiltrate atelectasis present no pneumothorax - Medical Decision Making Mr. Peacock has recurrent chest pain. I do not detect emergent cause such as pulmonary embolism, aortic dissection, pneumonia, pneumothorax, pericarditis, a cute coronary syndrome. Mr. Peacock given reassurance. Discharged home. Critical care attestation.: If time is entered above; I have spent that time in minutes in the direct care of this critically ill patient, excluding procedure time. ED Disposition Clinical Impression: Chest pain Disposition: DC-01 TO HOME OR SELFCARE Is pt being admited?: No Does the pt Need Aspirin: No Condition: Stable Instructions: Chest Pain (ED)
[2019-09-13 03:15] VITALS: BP 120/75
== END 2019-09-13 03:23 | disposition home or self-care (01) ==
LOC: ED 02:07
DX: R07.89 Other chest pain (principal); F41.9 Anxiety disorder, unspecified; F17.200 Nicotine dependence, unspecified, uncomplicated; F12.10 Cannabis abuse, uncomplicated; Z86.718 Personal history of other venous thrombosis and embolism; Z79.899 Other long term (current) drug therapy
CPT/HCPCS: 36415; 71045; 80048; 84484; 85025; 93005

== ENCOUNTER 2020-06-12 21:37 | Emergency (ER) | payer MEDICARE | END 2020-06-12 21:40 | disposition left against medical advice (07) | LOC: ED 21:37 | DX: R07.89 Other chest pain (principal); R51.9 Headache, unspecified; Z53.21 Procedure and treatment not carried out due to patient leaving prior to being seen by health care provider ==

== ENCOUNTER 2020-07-24 03:23 | Emergency (ER) | payer MEDICARE | END 2020-07-24 06:41 | disposition left against medical advice (07) | LOC: ED 03:23 | DX: I10 Essential (primary) hypertension (principal); Z53.21 Procedure and treatment not carried out due to patient leaving prior to being seen by health care provider ==